=== PATIENT | male | born 1935 | race Caucasian/White ===

== ENCOUNTER → 2017-08-29 16:03 | Outpatient (CLI) | payer MEDICARE, SELFPAY ==
--- NOTE | 2017-08-29 16:13 | XR_ITS ---
XR foot wt bearing LT 3V HISTORY: Left foot pain ITS.REASON: pain ORDERING PHYSICIAN: Patt Valdes DPM PATIENT AGE: 82 years COMPARISON: None FINDINGS: There is moderate hallux valgus with first metatarsophalangeal angle of 29 degrees with mild osteoarthritic change of the first MTP joint and mild hypertrophic changes of the distal aspect of the first metatarsal. Flexion deformity involves the second, third, fourth, and fifth toes. No fracture or dislocation. No lytic or blastic change. 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 Hammertoe deformity
--- NOTE | 2017-08-29 16:13 | XR_ITS ---
XR foot wt bearing RT 3V HISTORY: Foot pain, status post recent surgery ITS.REASON: pain ORDERING PHYSICIAN: Patt Valdes DPM PATIENT AGE: 82 years COMPARISON: None FINDINGS: There is moderate hallux valgus with first metatarsophalangeal angle of 28 degrees with mild osteoarthritic change of the first metatarsophalangeal junction and hypertrophic changes of the distal aspect of the first metatarsal.. There is borderline pes planus. A 5 mm calcific density is present within the subcutaneous soft tissues overlying the dorsum of the midfoot. There is flexion of the second toe. No fracture or dislocation. No lytic or blastic change. No bony erosive process or radiopaque foreign body. IMPRESSION: 1. Hallux valgus with osteoarthritis of the first MTP joint and bunion formation. 2. Borderline pes planus 3. Left and deformity of the second toe
[2017-08-29 18:11] LABS: Basophils % 0.6 % (0.1-2.0); Eosinophils # 0.4 K/mm3 (0.0-0.4); Eosinophils % 5.9 % (0.1-12.0); Hematocrit 45.3 % (42.0-52.0); Hemoglobin 15.6 g/dL (14.1-18.0); Lymphocytes # 1.8 K/mm3 (0.7-4.5); Lymphocytes % 29.5 K/mm3 (10-50); Mean Corpuscular HGB Conc 34.4 g/dL (31.8-35.4); Mean Corpuscular Hemoglobin 31.4 pg (27.0-31.2); Mean Corpuscular Volume 91.1 fl (80-94); Mean Platelet Volume 9.8 fl (7.4-10.4); Monocytes # 0.4 K/mm3 (0.1-1.0); Monocytes % 6.7 % (1.7-9.3); Neutrophils # 3.6 K/mm3 (1.8-7.8); Neutrophils % 57.4 % (37.0-80.0); Platelet Count 138 K/mm3 (142-424); Red Blood Count 4.97 M/mm3 (4.60-6.20); Red Cell Distribution Width 13.3 % (11.5-17.5); White Blood Count 6.3 K/mm3 (4.8-10.8)
[2017-08-29 18:49] LABS: Alanine Aminotransferase 21 U/L (12-78); Albumin Level 3.6 gm/dL (3.4-5.0); Alkaline Phosphatase 84 U/L (46-116); Anion Gap 13.3 mEq/L (5-15); Aspartate Amino Transferase 25 U/L (15-37); Bilirubin,Total 0.8 mg/dL (0.2-1.0); Blood Urea Nitrogen 24 mg/dL (7-18); C-Reactive Protein 0.3 mg/L (0.0-0.9); Calcium 9.3 mg/dL (8.5-10.1); Carbon Dioxide 28 mmol/L (21.0-32.0); Chloride 104 mmol/L (98-107); Creatinine,Serum 0.69 mg/dL (0.70-1.30); Estimated Glomerular Filt Rate 110 ml/min (>60); GFR (African American) 133 ML/MIN (>60); Globulin 3.6 gm/dl (1.3-3.2); Glucose 112 mg/dL (74-106); Potassium 4.3 mmoL/L (3.5-5.1); Sodium 141 mmol/L (136-145); Total Protein,Serum 7.2 gm/dL (6.4-8.2)
[2017-08-29 18:56] LABS: Hemoglobin A1C 6.6 % (0.0-7.0)
[2017-08-29 19:32] LABS: Erythrocyte Sedimentation Rate 30 mm/hr (0-20)
== END ==
PROVIDERS: Visit Provider Podiatrist
DX: M79.673 Pain in unspecified foot (principal); E11.9 Type 2 diabetes mellitus without complications; Z51.89 Encounter for other specified aftercare
CPT/HCPCS: 36415; 73630; 80053; 83036; 85025; 85651; 86140; 87070; 87077; 87186; 87205

== ENCOUNTER → 2017-08-29 16:28 | Outpatient (CLI) | payer MEDICARE, SELFPAY | PROVIDERS: Visit Provider Podiatrist | DX: M79.673 Pain in unspecified foot (principal); E11.9 Type 2 diabetes mellitus without complications; Z51.89 Encounter for other specified aftercare | CPT/HCPCS: 36415; 73630; 80053; 83036; 85025; 85651; 86140; 87070; 87077; 87205 ==

== ENCOUNTER → 2022-06-24 11:11 | Outpatient (CLI) | payer MEDICARE, SELFPAY ==
--- NOTE | 2022-06-24 11:16 | CA_ITS ---
APPROVED REPORT EXAM: Comprehensive 2D, Doppler, and color-flow Echocardiogram Block Chopper Hand: JEREMY George, RVS Ht: 5 ft 9 in Wt: 178lbs BSA: 1.97 BP: 119/77 mmHg Indications: CP, SOA, MURMUR, CAd hx- coronary stent, [place], CKD, HTN, HLD Echo Enhancing Agent Comments: SHOE IRONER notified prior to stress 2D Dimensions LVDd 4.81 cm LVEF (Visual) 46.90 % LVDs 3.68 cm LA Volume 93.90 mL Aortic Root 3.48 cm LA Volume Index 46.70 mL/m2 (M/F) 16-34 Left Atrium 4.63 cm LVOT 1.94 cm (M/F) 1.5-2.5 M-Mode Dimensions RVDd 2.61 cm (0.9-2.6) LA Diam 5.41 cm (1.9-4.0) LVDd 4.94 cm (3.5-5.7) Ao Diam 3.58 cm (2.0-3.7) LVDs 3.33 cm (3.5-5.7) IVSd 1.57 cm (0.6-1.1) PWd 1.20 cm (0.6-1.1) EF (Teich) 60.80% EPSs 1.41 cm FS 32.60% EDV (Teich) 115.00 mL TAPSE 2.34 (<1.7) ESV (Teich) 45.10 mL LV Diastology E Decel Time 150.00 (160-240 msec) E/A Ratio 3.33 MED E' 4.00 (< 7 cm/sec) MED A' 4.80 cm/s E'/MED E' Ratio 41.00 (>14) LAT E' 5.00 (<10 cm/sec) LAT A' 3.10 cm/s E/LAT E' Ratio 32.80 (>14) Aortic Valve LVOT Max 65.00 (70-110 cm/s) LVOT VTI 16.40 cm AoV Peak Hung. 492.00 (50-130 cm/s) AI PHT 367.00 ms AO Peak GR. 97.00 mmHg AO Mean GR. 73.60 (<5 mmHg) AO VTI 134.12 (18-25 cm) CHRIS (VTI) 0.36 (2.5-4.5 cm2) Mitral Valve MV A Velocity 49.00 (40-130 cm/s) E/A Ratio 3.33 MV Decel. Time 150.00 (160-240 ms) MV PHT 47.00 ms Pulmonary Valve PV Peak Velocity 64.00 (50-150 cm/s) Tricuspid Valve TR P. Velocity 278.00 cm/s RAP Estimate 10.00 mmHg RVSP 40.90 mmHg Left Ventricle Left atrium is moderately enlarged, left ventricle is normal size mild concentric left ventricular hypertrophy, estimated ejection fraction 55% with no regional wall motion abnormality, grade 2 diastolic dysfunction seen with tissue Doppler evidence of raise left atrial pressure. Right Ventricle Right atrium and right ventricular mildly enlarged with normal contractility. Aortic Valve Aortic valve is thickened and calcified with severe restriction in the leaflet mobility, the maximum aortic outflow velocity: Still 4.7 m/s, resulting in a mean gradient of 74 mmHg across the aortic valve, valve area 0.4 cm??? represents critical aortic stenosis, there is mild aortic insufficiency. Mitral Valve Mitral valve has dense mitral annular calcification which extends in the posterior mitral leaflet, there is no mitral stenosis, there is mild mitral regurgitation. Tricuspid Valve Tricuspid valve grossly normal, there is mild tricuspid regurgitation, tricuspid regurgitation jet velocity is inadequate for accurate assessment of the right ventricular systolic pressure. Pulmonic Valve Pulmonic valve is poorly visualized. Great Vessels Aortic root is normal size. Inferior vena cava is mildly dilated without significant inspiratory collapse. Pericardium No significant pericardial effusion noted. Conclusion 1. Biatrial enlargement, normal left ventricular size, mild concentric left ventricular hypertrophy, estimated ejection fraction 55% with no regional wall motion abnormality, grade 2 diastolic dysfunction seen with tissue Doppler evidence of raise left atrial pressure. 2. Thickened and calcified aortic valve with critical aortic stenosis, valve area 0.4 cm???, there is mild aortic insufficiency. 3. Mild mitral and tricuspid regurgitation. 4. No significant pericardial effu
== END ==
PROVIDERS: PCP Family Medicine; Visit Provider Nurse Practitioner
DX: E78.5 Hyperlipidemia, unspecified (principal); I10 Essential (primary) hypertension; N18.9 Chronic kidney disease, unspecified; R01.1 Cardiac murmur, unspecified; R06.00 Dyspnea, unspecified; R07.9 Chest pain, unspecified; R94.31 Abnormal electrocardiogram [ECG] [EKG]; Z95.5 Presence of coronary angioplasty implant and graft; I20.8 Other forms of angina pectoris
CPT/HCPCS: 93306

== ENCOUNTER 2022-11-20 19:24 | Emergency (ER) | payer MEDICARE, MEDICAID, SELFPAY ==
--- NOTE | 2022-11-19 19:27 | ECG_ITS ---
APPROVED REPORT Exam: Resting ECG HR:76 bpm ECG Measurements Heart Rate 76 AXES DE 168 P 71 QRSd 103 QRS -41 QT 362 T 30 QTc 393 Conclusion SINUS RHYTHM WITH MARKED SINUS ARRHYTHMIA LEFT AXIS DEVIATION [QRS AXIS < -30] NONSPECIFIC T-WAVE ABNORMALITY ABNORMAL ECG UNCONFIRMED REPORT Electronically signed by : Dimitri Palumbo MD 11/21/2022 07:01:15
[2022-11-20] VITALS (9 sets, daily range): BP systolic 99–123; BP diastolic 42–70; PULSE 60–78; RESP 16–18; TEMP 36.6–36.8; O2SAT 95–98; BMI 23.4
--- NOTE | 2022-11-20 19:27 | XR_ITS ---
PROCEDURE INFORMATION: Exam: XR Chest Exam date and time: 11/20/2022 7:32 PM Age: 87 years old Clinical indication: Pain; Chest pressure; Additional info: Cp TECHNIQUE: Imaging protocol: Radiologic exam of the chest. Views: 1 view. Total images: 1 COMPARISON: No relevant prior studies available. FINDINGS: Tubes, catheters and devices: EKG leads are present. Lungs: Unremarkable. No consolidation. No pulmonary vascular congestion or edema. Pleural spaces: Unremarkable. No pleural effusion. No pneumothorax. Heart/Mediastinum: Unremarkable. No cardiomegaly. No mediastinal widening or hilar enlargement. Vasculature: Mildly atherosclerotic and tortuous thoracic aorta. Bones/joints: Near complete loss of subacromial space bilaterally implying chronic bilateral rotator cuff tears. Partially visualized moderate degenerative changes thoracic spine. Diffuse osseous demineralization. Soft tissues: Punctate metallic foreign bodies projecting at the lateral right lung apex. Skin fold artifact upper left hemithorax. IMPRESSION: 1. No radiographically acute cardiopulmonary process. 2. Chronic findings.
--- NOTE | 2022-11-20 19:32 | PC.NURSE ---
in room talking with patient at this time.
[2022-11-20 19:36] LABS: Basophils # 0.1 K/mm3 (0-0.2); Basophils % 0.9 % (0.1-2.0); Eosinophils # 0.3 K/mm3 (0.0-0.4); Eosinophils % 5.8 % (0.1-12.0); Hematocrit 46.2 % (42.0-52.0); Hemoglobin 15.1 g/dL (14.1-18.0); Lymphocytes # 1.4 K/mm3 (0.7-4.5); Lymphocytes % 23.5 % (10-50); Mean Corpuscular HGB Conc 32.6 g/dL (31.8-35.4); Mean Corpuscular Hemoglobin 31.2 pg (27.0-31.2); Mean Corpuscular Volume 95.8 fl (80-94); Monocytes # 0.5 K/mm3 (0.1-1.0); Neutrophils # 3.6 K/mm3 (1.8-7.8); Neutrophils % 61.8 % (37.0-80.0); Platelet Count 136 K/mm3 (142-424); Red Blood Count 4.82 M/mm3 (4.60-6.20); Red Cell Distribution Width 14.1 % (11.5-17.5); White Blood Count 5.9 K/mm3 (4.8-10.8)
--- NOTE | 2022-11-20 19:39 | CT_ITS ---
PROCEDURE INFORMATION: Exam: CTA Chest With Contrast Exam date and time: 11/20/2022 8:12 PM Age: 87 years old Clinical indication: Pain; Chest pressure; Additional info: Cehst pain to back, left sided numbness TECHNIQUE: Imaging protocol: Computed tomographic angiography of the chest with contrast. Exam focused on the arteries. 3D rendering (Not supervised by radiologist): MIP and/or 3D reconstructed images were created by the technologist. Total images: 760 Radiation optimization: All CT scans at this facility use at least one of these dose optimization techniques: automated exposure control; mA and/or kV adjustment per patient size (includes targeted exams where dose is matched to clinical indication); or iterative reconstruction. Contrast material: ISOVUE; Contrast volume: 100 ml; Contrast route: INTRAVENOUS (IV); REPORTING DATA: Count of CT and Cardiac NM exams in prior 12 months: This patient has received 0 known CTs and 0 known cardiac nuclear medicine studies in the 12 months prior to the current study. COMPARISON: CR XR CHEST PORTABLE 11/20/2022 7:32 PM FINDINGS: Pulmonary arteries: Adequate contrast opacification of the pulmonary arteries. Considerable respiratory motion artifact limits evaluation for pulmonary emboli. No main or proximal most segmental pulmonary emboli. Aorta: Moderately atherosclerotic thoracic aorta without aneurysm or dissection. Mild tortuosity. Thyroid: Tiny thyroid nodules or cysts requiring no follow-up. Lungs: Trachea and main bronchi are patent. Fine linear right upper lobe scarring. No concerning infiltrate or airspace consolidation. Small volume consolidation inferior right lower lobe, axial image 86. Scattered calcified pulmonary granuloma. Pleural spaces: Unremarkable. No pneumothorax. No pleural effusion. Heart: Normal heart size. No pericardial effusion. Status post stent graft repair of the aortic valve. Coronary arteries: Extensive coronary artery calcifications. Lymph nodes: No mediastinal or hilar lymphadenopathy. Partially calcified right hilar lymph node compatible with remote granulomatous disease. Bones/joints: Remote deformity right 5th rib. Diffuse osseous demineralization. Moderate degenerative changes thoracic spine. Increased thoracic kyphosis. [id number] anterior wedge compression deformity T5 vertebral body of undetermined acuity. No retropulsion or traumatic subluxation. Soft tissues: Mild bilateral gynecomastia. IMPRESSION: 1. No aortic aneurysm or dissection. 2. Extensive coronary artery calcifications. 3. No main or proximal segmental pulmonary emboli. 4. Very small airspace consolidation posterior right lung base. Consider follow-up routine chest CT in 3 months to confirm resolution. 5. Remote calcified granulomatous disease. 6. Status post stent repair of the aortic valve. 7. Bilateral gynecomastia 8. Josw-kr-vkrlsjbe compression deformity T5 vertebral body of undetermined acuity. COMMENTS: Consistent with the [employer]'s Incidental Findings Committee white paper (J Am Keisha Radiol 2015): In patients aged 35 years and older with an incidental thyroid nodule equal to or greater than 1.[address], MRI or extrathyroidal US, further evaluation with dedicated thyroid US is recommended for patients with normal life expectancy and without comorbidities. For smaller nodules without suspicious features, no further evaluation or follow up is recommended.
--- NOTE | 2022-11-20 19:45 | HMH.EDGENADL ---
Discharge Plan Disposition Patient Disposition: Home, Self-Care Chief Complaint: Chest Pain Prescriptions Prescriptions: No Action aspirin [Adult Low Dose Aspirin] 81 mg tablet,delayed release (DR/EC) 81 mg PO ONCE isosorbide mononitrate 60 mg tablet extended release 24 hr 60 mg PO DAILY 90 Days Qty: 90 metoprolol succinate 50 mg tablet extended release 24 hr 50 mg PO DAILY 90 Days Qty: 90 triamterene-hydrochlorothiazid 37.5-25 mg tablet 1 tab PO DAILY 90 Days Qty: 90 alfuzosin 10 mg tablet extended release 24 hr 10 mg PO DAILY Referrals Follow up/Referrals: Provider,Referral, MD [Referring] - See instructions Activity Restrictions/Add. Instructions Additional Instructions/Restrictions: Call your family doctor and cardiology to establish care for this visit to the emergency department and schedule follow-up within 48 hours to ensure improvement. If you have any worsening of your condition or any other concerning signs or symptoms, return to the emergency department or your primary care doctor for further evaluation. Take Tylenol 1000 mg every 6 hours (4 times daily) and ibuprofen 400 mg every 6 hours (4 times daily) as needed with food and water to prevent GI upset and kidney damage. Clinical Impressions Clinical Impression: Chest pain, Constipation, Abdominal pain Discharge ED Provider: Coleman Jeronimo General Adult HPI General Chief complaint: Chest Pain Stated complaint: Chest Pain Time Seen by Provider: 11/20/22 19:27 Mode of Arrival: Ambulatory Source of Information: Patient Limitations: No Limitations Description of Symptoms (Recalled from ER Triage Doc. by RN): pt c/o lt side chest pain radiating down lt arm and to back since 6am this morning History of Present Illness HPI narrative: This is an 87-year-old male with history of hypertension, hyperlipidemia, severe aortic stenosis status post porcine aortic valve replacement in August 2022, CAD status post stenting in June 2022 currently on aspirin and Plavix presenting with chest pain. Patient states that he has been having chest pain for about 2 weeks. He has seen his primary care doctor, who told him it may be shingles given redness and pain on the left side of his chest. Patient states the pain has not gotten any better. It is moderate to severe in intensity, intermittent, left-sided, radiates from left side of his chest to his back. States that he is also having left face, left upper extremity and left lower extremity tingling. Denies any weakness, shortness of breath, diaphoresis, nausea or vomiting. Also having abdominal pain that is constant, Also radiates to his back. Denies bowel or bladder dysfunction, constipation, diarrhea, dysuria or hematuria, fevers or chills,, or any other concerns. Related Data Home Medications Medication Instructions Recorded Confirmed aspirin 81 mg tablet,delayed 81 mg PO ONCE 08/29/17 06/24/22 release (Adult Low Dose Aspirin) alfuzosin 10 mg tablet,extended 10 mg PO DAILY 06/09/22 06/24/22 release 24 hr isosorbide mononitrate 60 mg 60 mg PO DAILY 90 days #90 tabs 06/09/22 06/24/22 tablet,extended release 24 hr metoprolol succinate 50 mg 50 mg PO DAILY 90 days #90 tabs 06/09/22 06/24/22 tablet,extended release 24 hr triamterene 37.5 1 tab PO DAILY 90 days #90 tabs 06/09/22 06/24/22 mg-hydrochlorothiazide 25 mg tablet Allergies Allergy/AdvReac Type Severity Reaction Status Date / Time Latex, Natural Rubber Allergy Verified 06/24/22 12:44 [facility] Disclaimer: The information contained in this section may have been updated after the patient was seen, as this information can be updated by other users. Medical History (Updated 11/20/22 @ 21:07 by Coleman Jeronimo MD) Abnormal electrocardiogram [ECG] [EKG] Aortic stenosis CAD (coronary artery disease) Cardiac murmur Chest pain Chest pain CKD (chronic kidney disease) Dyspnea HLD (hyperlipidemia) HTN (hypertension
--- NOTE | 2022-11-20 19:47 | CT_ITS ---
PROCEDURE INFORMATION: Exam: CTA Abdomen and Pelvis With Contrast Exam date and time: 11/20/2022 8:12 PM Age: 87 years old Clinical indication: Abdominal pain; Other: Back; Additional info: Cp and abd pain to back - R/O dissection TECHNIQUE: Imaging protocol: Computed tomographic angiography of the abdomen and pelvis with contrast. Exam focused on the arteries. 3D rendering (Not supervised by radiologist): MIP and/or 3D reconstructed images were created by the technologist. Total images: 1259 Radiation optimization: All CT scans at this facility use at least one of these dose optimization techniques: automated exposure control; mA and/or kV adjustment per patient size (includes targeted exams where dose is matched to clinical indication); or iterative reconstruction. Contrast material: ISOVUE; Contrast volume: 100 ml; Contrast route: INTRAVENOUS (IV); REPORTING DATA: Count of CT and Cardiac NM exams in prior 12 months: This patient has received 0 known CTs and 0 known cardiac nuclear medicine studies in the 12 months prior to the current study. COMPARISON: CR XR CHEST PORTABLE 11/20/2022 7:32 PM FINDINGS: Aorta: Abdominal aorta is moderately atherosclerotic without aneurysm or dissection. Celiac trunk and mesenteric arteries: Moderate atherosclerotic irregularity and narrowing of the proximal superior mesenteric artery. Mild narrowing origin of the celiac artery. Renal arteries: Moderate stenosis origin of the renal arteries. Right iliac arteries: Atherosclerotic right iliac artery without occlusion or stenosis. Left iliac arteries: Atherosclerotic left iliac artery without occlusion or stenosis. Liver: No mass. Gallbladder and bile ducts: Status post cholecystectomy. No bile duct dilatation. Pancreas: Atrophic pancreas. No acute pancreatitis. Spleen: Heterogeneous spleen compatible with phase of contrast. No splenomegaly. Adrenal glands: Unremarkable. No mass. Kidneys and ureters: No hydronephrosis, nephrolithiasis, or renal mass. Bilateral renal cortical thinning/scarring. Small left renal cortical cyst. Stomach and bowel: Unremarkable stomach and duodenum. No ileus or bowel obstruction. Small bowel appears within normal limits. Mobile cecum projecting in the right upper quadrant. Moderate to large colonic stool burden. Severe sigmoid diverticulosis without acute diverticulitis. Unremarkable rectum. Appendix: The appendix is not discretely visualized. No secondary signs of appendicitis. Intraperitoneal space: Unremarkable. No free air. No significant fluid collection. Lymph nodes: Unremarkable. No enlarged lymph nodes. Urinary bladder: Mild bladder wall thickening from incomplete distention. Reproductive: Mild prostatomegaly. Bones/joints: Mild degenerative changes bilateral hips and SI joints. Minor lumbar levocurvature. Moderate degenerative changes lumbar spine. No acute osseous abnormality. Soft tissues: Unremarkable. IMPRESSION: 1. No abdominal aortic aneurysm or dissection. 2. No acute intra-abdominal or pelvic process. 3. Sequela of chronic constipation with large formed stool burden. 4. Multiple additional chronic and incidental findings.
[2022-11-20 19:49] LABS: Chloride 100 mmol/L (98-107); Potassium 4.6 mmoL/L (3.5-5.1); Sodium 141 mmol/L (136-145)
[2022-11-20 19:51] LABS: Blood Urea Nitrogen 35 mg/dl (9-20); Creatinine Clearance Estimated 50 mL/min (50-200); Estimated Glomerular Filt Rate 64 ml/min (>60); GFR (African American) 77 ML/MIN (>60)
[2022-11-20 19:52] LABS: Alanine Aminotransferase 39 U/L (12-78); Albumin Level 3.8 g/dl (3.5-5.0); Alkaline Phosphatase 169 U/L (38-126); Anion Gap 13.6 mEq/L (5-15); Aspartate Amino Transferase 56 U/L (17-59); Bilirubin,Total 1.2 mg/dl (0.2-1.3); Calcium 9.5 mg/dl (8.4-10.2); Carbon Dioxide 32 mmol/L (22.0-30.0); Globulin 3.8 g/dL (1.3-3.2); Glucose 135 mg/dl (74-100); Total Protein,Serum 7.6 g/dl (6.3-8.2)
[2022-11-20 19:56] LABS: Lipase 71 U/L (23-300)
[2022-11-20 20:07] LABS: Troponin I 0.01 ng/ml (0.00-0.034)
--- NOTE | 2022-11-20 20:11 | PC.NURSE ---
pt at ct
--- NOTE | 2022-11-20 20:57 | PC.NURSE ---
pt received a warm blanket
[2022-11-20 22:49] LABS: Troponin I < 0.01 ng/ml (0.00-0.034)
== END 2022-11-20 23:10 | disposition home or self-care (01) ==
PROVIDERS: Emergency Provider Emergency Medicine; PCP Family Medicine
DX: R07.9 Chest pain, unspecified (principal); M79.601 Pain in right arm; E78.5 Hyperlipidemia, unspecified; Z79.02 Long term (current) use of antithrombotics/antiplatelets; Z79.82 Long term (current) use of aspirin; I12.9 Hypertensive chronic kidney disease with stage 1 through stage 4 chronic kidney disease, or unspecified chronic kidney disease; N18.9 Chronic kidney disease, unspecified; I25.10 Atherosclerotic heart disease of native coronary artery without angina pectoris
CPT/HCPCS: 36415; 71045; 71275; 74174; 80053; 83690; 84484; 85025; 93005; 96360; 99285; Q9967

== ENCOUNTER 2023-06-14 09:25 | Day surgery (SDC) | payer MEDICARE, MEDICAID, SELFPAY ==
[2023-06-10 09:55] VITALS: BMI 22.1
[2023-06-14] VITALS (9 sets, daily range): BP systolic 109–128; BP diastolic 55–71; PULSE 49–58; RESP 17–18; TEMP 36–36.2; O2SAT 92–100
[2023-06-14] MEDS: PHENYLEPHRINE 2.5% OPHTH SOLN 2ML 0.0500000000000000028 ML OP ×3 (10:15→10:25)
[2023-06-14] MEDS: TETRACAINE 0.5% OPTH SOL 15ML OP ×3 (10:15→10:25)
[2023-06-14] MEDS: CYCLOPENTOLATE 2% OPHTH SOLN 2ML BOTTLE OP ×3 (10:15→10:25)
[2023-06-14] MEDS: MIDAZOLAM 2MG/2ML VIAL 1 MG IV (12:02)
[2023-06-14] MEDS: LIDOCAINE 1% PF 2ML AMPULE 2 ML IJ (12:03)
[2023-06-14] MEDS: TIMOLOL 0.5% OPTH SOLN 5ML OP (12:03)
[2023-06-14] MEDS: TOBRAMYCIN/DEX OPTH SUSP 2.5ML OP (12:03)
== END 2023-06-14 12:40 | disposition home or self-care (01) ==
PROVIDERS: PCP Family Medicine; Visit Provider Ophthalmology
PROC: (CPT 66984; principal; 2023-06-14 12:00)
DX: H25.811 Combined forms of age-related cataract, right eye (principal)
CPT/HCPCS: 66984; V2632

== ENCOUNTER 2023-08-09 10:55 | Emergency (ER) | payer MEDICARE, MEDICAID, SELFPAY ==
[2023-08-09] VITALS (9 sets, daily range): BP systolic 93–134; BP diastolic 50–74; PULSE 65–87; RESP 18–21; TEMP 36.6; O2SAT 73–100; BMI 22.1
--- NOTE | 2023-08-09 10:55 | ECG_ITS ---
APPROVED REPORT Exam: Resting ECG HR:77 bpm ECG Measurements Heart Rate 77 AXES UT 179 P 76 QRSd 102 QRS -53 QT 386 T 14 QTc 418 Conclusion SINUS RHYTHM WITH OCCASIONAL SUPRAVENTRICULAR PREMATURE COMPLEXES PATTERN CONSISTENT WITH PULMONARY DISEASE LEFT ANTERIOR FASCICULAR BLOCK [QRS AXIS <= -45, QR IN I, RS IN II] SEPTAL MYOCARDIAL INFARCTION , PROBABLY OLD [40+ ms Q WAVE IN V1/V2] Electronically signed by : JARON IRENE, 08/11/2023 19:33:00
[2023-08-09 11:04] LABS: Coronavirus 19, PCR Not Detected (NotDetected); Influenza A, PCR Not Detected (NotDetected); Influenza B, PCR Not Detected (NotDetected)
--- NOTE | 2023-08-09 11:04 | XR_ITS ---
FINAL REPORT CLINICAL HISTORY: chest pain, cough COMPARISON: 11/20/2022 FINDINGS: The heart size is normal. There is an unfolded aorta. The mediastinum is normal. There is no focal infiltrate or edema. There are no pleural effusions. There is no pneumothorax. There is no osseous abnormality. There are metallic densities in the upper right thorax. IMPRESSION: No acute cardiopulmonary process Reviewed, Interpreted and Dictated by Arden Cardona MD Transcribed by Nimisha Hawley Authenticated and . [facility]
--- NOTE | 2023-08-09 11:07 | HMH.EDGENADL ---
Discharge Plan Disposition Patient Disposition: Home, Self-Care Condition: Good Prescriptions Prescriptions: No Action aspirin [Adult Low Dose Aspirin] 81 mg tablet,delayed release (DR/EC) 81 mg PO ONCE isosorbide mononitrate 60 mg tablet extended release 24 hr 60 mg PO DAILY 90 Days Qty: 90 metoprolol succinate 50 mg tablet extended release 24 hr 50 mg PO DAILY 90 Days Qty: 90 triamterene-hydrochlorothiazid 37.5-25 mg tablet 1 tab PO DAILY 90 Days Qty: 90 alfuzosin 10 mg tablet extended release 24 hr 10 mg PO DAILY Referrals Follow up/Referrals: Provider,Referral, MD [Referring] - See instructions Activity Restrictions/Add. Instructions Additional Instructions/Restrictions: Please follow-up with your primary care provider. Please make sure you stay hydrated and continue to check your blood pressure. You may want to discuss with your normal doctor's adjusting your diuretic dose or blood pressure medications if, after time, it seems that these are contributing to some of your symptoms. Please return with any new or worsening symptoms. Clinical Impressions Clinical Impression: Diarrhea Instructions Patient Instructions: DI for Atypical Chest Pain Discharge ED Provider: Paul Cobos Adult HPI General Chief complaint: Chest Pain Stated complaint: CHEST PAIN Time Seen by Provider: 08/09/23 11:04 Mode of Arrival: Ambulatory Source of Information: Patient Limitations: No Limitations Description of Symptoms (Recalled from ER Triage Doc. by RN): Patient complaint of head, bilateral arm pain, chills, diarrhea, nausea and off and on chest pains. States this started this morning. History of Present Illness HPI narrative: This patient presents for evaluation of nausea, vomiting, diarrhea. Symptoms were gradual in onset starting yesterday, worsening this morning. He reports 1-2 episodes of emesis, both emesis and diarrhea are nonbloody. No changes in medications or new medications. Denies recent antibiotic use. Does describe some associated mild substernal nonradiating nonpleuritic nonexertional nonpositional nonreproducible substernal chest pain. Denies any abdominal pain outside of some discomfort when he was throwing up. He denies any abdominal pain at this time. He denies any shortness of breath, upper respiratory symptoms. No sick contacts. No fevers or chills. Please note that above description of symptoms, in this electronic medical record under categorization of recalled from ER triage doctor by RN are reflective of an initial nursing assessment, however, is not reflective of my full history and physical exam that was personally taken and clarified. Consequentially, this preceding description of symptoms, which may include the patient's categorized chief complaint in the EMR, do not reflect my personal clinical impression, and the ultimate description of history of present illness and patient stated complaints should be deferred to this section of the note. Unless stated otherwise or congruent with this section of the note, additional signs, symptoms, or incongruence should be interpreted as inaccurate with my clinical impression. Related Data Home Medications Medication Instructions Recorded Confirmed aspirin 81 mg tablet,delayed 81 mg PO ONCE 08/29/17 06/14/23 release (Adult Low Dose Aspirin) alfuzosin 10 mg tablet,extended 10 mg PO DAILY 06/09/22 06/14/23 release 24 hr isosorbide mononitrate 60 mg 60 mg PO DAILY 90 days #90 tabs 06/09/22 06/14/23 tablet,extended release 24 hr metoprolol succinate 50 mg 50 mg PO DAILY 90 days #90 tabs 06/09/22 06/14/23 tablet,extended release 24 hr triamterene 37.5 1 tab PO DAILY 90 days #90 tabs 06/09/22 06/14/23 mg-hydrochlorothiazide 25 mg tablet Allergies Allergy/AdvReac Type Severity Reaction Status Date / Time Latex, Natural Rubber Allergy Verified 06/14/23 10:20 [facility] Disclaimer: The information contained in this section may have been updated after the patient was seen, as this information can be updated by other users. Medical History (Updated 08/09/23 @ 15:24 by Paul Cobos MD) Aortic stenosis Abnormal electrocardiogram [ECG] [EKG] Cardiac murmur CKD (chronic kidney disease) HLD (hyperlipidemia) HTN (hypertension) Dyspnea Chest pain CAD (coronary artery disease) Chest pain Surgical History History of heart artery stent History of cardiac cath Family History Other No significant family history Social History Smoking Status: Never smoker alcohol intake: never current occupational status: retired Travel in the last 8 weeks: None ROS Obtained: Yes other As per HPI Physical Exam General General appearance: alert and in no apparent distress Head Head exam: atraumatic and normocephalic Eye Eye exam: Present normal appearance Neck Neck exam: Present normal inspection Chest Chest inspection: Present normal inspection and symmetric chest wall rise Respiratory Respiratory exam: Present normal lung sounds bilaterally; Absent respiratory distress Cardiovascular Cardiovascular exam: Present regular rate and normal rhythm Abdominal Exam Abdominal exam: Present soft Neurological Exam Neurological exam: Present alert and oriented X3 Psychiatric Psychiatric exam: Present normal affect and normal mood Skin Skin exam: Present warm and dry Other Other exam information: No abdominal tenderness to palpation, no appreciable hernia bulge at this time. Medical Decision Making Medical Records Medical records reviewed: Yes I reviewed the patient's medical records. Kapil Inquiry Pt receiving controlled substance: No Vital Signs: 08/09/23 10:58 08/09/23 11:30 08/09/23 12:15 Temperature 97.9 F Temperature Source Oral Pulse Rate 74 74 Pulse Rate [Radial] 87 Respiratory Rate 20 21 19 Blood Pressure 111/62 112/64 Blood Pressure [Right Arm] 134/74 Blood Pressure Mean [Right Arm] 94 Blood Pressure Source Blood Pressure Source [Right Arm] Automatic Cuff Blood Pressure Position Blood Pressure Position [Right Arm] Sitting 02 Sat by Pulse Oximetry 98 95 98 Oxygen Delivery Method Room Air Room Air 08/09/23 12:30 08/09/23 13:00 08/09/23 13:30 Temperature Temperature Source Pulse Rate 70 65 Pulse Rate [Radial] Respiratory Rate 21 20 21 Blood Pressure 114/66 115/59 L 105/57 L Blood Pressure [Right Arm] Blood Pressure Mean [Right Arm] Blood Pressure Source Blood Pressure Source [Right Arm] Blood Pressure Position Blood Pressure Position [Right Arm] 02 Sat by Pulse Oximetry 98 73 L 94 L Oxygen Delivery Method Room Air 08/09/23 14:00 08/09/23 14:30 08/09/23 15:34 Temperature 98 F Temperature Source Oral Pulse Rate 73 69 69 Pulse Rate [Radial] Respiratory Rate 18 19 19 Blood Pressure 93/50 L 105/54 L 105/54 L Blood Pressure [Right Arm] Blood Pressure Mean [Right Arm] Blood Pressure Source Automatic Cuff Blood Pressure Source [Right Arm] Blood Pressure Position Sitting Blood Pressure Position [Right Arm] 02 Sat by Pulse Oximetry 100 99 Oxygen Delivery Method Room Air Room Air Lab Data Lab Results 08/09/23 11:00: WBC 4.8, RBC 4.89, Hgb 16.5, Hct 49.9, MCV 102.0 H, MCH 33.7 H, MCHC 33.0, RDW 14.0, Plt Count 89 L, MPV 9.9, Neut % (Auto) 83.4 H, Lymph % (Auto) 8.3 L, [place] % (Auto) 6.0, Eos % (Auto) 1.9, Baso % (Auto) 0.4, Neut # (Auto) 4.0, Lymph # (Auto) 0.4 L, [place] # (Auto) 0.3, Eos # (Auto) 0.1, Baso # (Auto) 0.0, Total Counted 100, Neutrophils % (Manual) 87 H, Lymphocytes % (Manual) 10, Monocytes % (Manual) 2, Eosinophils % (Manual) 1, Nucleated RBCs 1, Platelet Estimate Moderate decrease, Macrocytosis 1+, Sodium 142, Potassium 4.2, Chloride 106, Carbon Dioxide 34 H, Anion Gap 6.2, BUN 26 H, Creatinine 0.80, Estimated Creat Clear 51, Estimated GFR 92, Est GFR ( Amer) 111, Glucose 163 H, Calcium 9.2, Total Bilirubin 2.7 H, AST 52, ALT 37, Alkaline Phosphatase 81, Troponin I < 0.01, Total Protein 6.9, Albumin 3.7, Globulin 3.2, Albumin/Globulin Ratio 1.2 08/09/23 11:01: SARS-CoV-2 (PCR) Not detected, Influenza A Untype (PCR) Not detected, Influenza Type B (PCR) Not detected 08/09/23 13:48: Troponin I < 0.01 08/09/23 11:00 08/09/23 11:00 Orders (Tests/Meds): ED MEDICATIONS Discontinued Medications Generic Name Dose Route Start Last Admin Trade Name Freq PRN Reason Stop Dose Admin Sodium Chloride 10 ml 08/09/23 11:04 Sodium Chloride 0.9% 10ml Flush Syringe IV 09/08/23 11:03 NEEDED PRN Maintain IV Site ORDERS Category Date Time Status Chest XR -- portable [XR chest portable] Stat Exams 08/09/23 11:04 Taken Complete Blood Count Man Dif Stat Lab 08/09/23 11:00 Completed Comprehensive Metabolic Panel Stat Lab 08/09/23 11:00 Completed Rapid PCR Covid and Flu A/B Stat Lab 08/09/23 11:01 Completed Troponin I Q3H Lab 08/09/23 13:48 Completed Troponin I Stat Lab 08/09/23 11:00 Completed Medical Decision Narrative: Patient with history and exam per above presenting for evaluation of multiple complaints, nausea, vomiting, diarrhea, malaise Diagnoses considered include infectious diarrhea, ACS, GIBSON, electrolyte abnormality, hypoglycemia, among others. Given lack of abdominal pain, hemodynamic instability, palpable hernia, or other findings suggestive of acute surgical pathology there is insufficient evidence to warrant further workup at this time for bowel obstruction, incarcerated hernia, or other etiology that would necessitate CT imaging ED workup and treatment included: ED MEDICATIONS Discontinued Medications Generic Name Dose Route Start Last Admin Trade Name Freq PRN Reason Stop Dose Admin Sodium Chloride 10 ml 08/09/23 11:04 Sodium Chloride 0.9% 10ml Flush Syringe IV 09/08/23 11:03 NEEDED PRN Maintain IV Site ORDERS Category Date Time Status Chest XR -- portable [XR chest portable] Stat Exams 08/09/23 11:04 Taken Complete Blood Count Man Dif Stat Lab 08/09/23 11:00 Completed Comprehensive Metabolic Panel Stat Lab 08/09/23 11:00 Completed Rapid PCR Covid and Flu A/B Stat Lab 08/09/23 11:01 Completed Troponin I Q3H Lab 08/09/23 13:48 Completed Troponin I Stat Lab 08/09/23 11:00 Completed Labs were independently interpreted by me, significant for no leukocytosis, creatinine within normal limits, platelet count 89 in the absence of any evidence of acute bleeding, troponins within normal limits Imaging was independently visualized and interpreted by me, significant for no consolidative process or widened mediastinum My clinical impression at this time is most consistent with hypovolemia, unspecified diarrheal illness Upon repeat evaluation patient reported improvement of symptoms. He was able to ambulate without difficulty which, per daughter at bedside, was the main symptom that warranted presentation today. She reports that he was able to get some sleep while in the emergency department and states that he has been in similar condition in the past when he has not had much sleep. Additionally he was able to initiate some p.o. intake which helped his symptoms as well. Daughter expresses level of comfort with his clinical picture at this time, he will follow-up closely with line tender [place] and primary care physician. I discussed my clinical impression with patient and answered all questions. At this time, the evidence for any other entities in the differential is insufficient to warrant any further testing or ED observation. This was explained to the patient. The patient was advised that persistent or worsening symptoms require further evaluation. I confirmed the patient's understanding of this discussion. Critical Care Critical Care Time Critical Care Time: No
[2023-08-09 11:08] LABS: MANUAL DIFFERENTIAL MANUAL DIFFERENTIAL (MANUAL DIFF)
[2023-08-09 11:12] LABS: Chloride 106 mmol/L (98-107); Potassium 4.2 mmoL/L (3.5-5.1); Sodium 142 mmol/L (136-145)
[2023-08-09 11:13] LABS: Basophils % 0.4 % (0.1-2.0); Eosinophils # 0.1 K/mm3 (0.0-0.4); Eosinophils % 1.9 % (0.1-12.0); Hematocrit 49.9 % (42.0-52.0); Hemoglobin 16.5 g/dL (14.1-18.0); Lymphocytes # 0.4 K/mm3 (0.7-4.5); Lymphocytes % 8.3 % (10-50); Mean Corpuscular Hemoglobin 33.7 pg (27.0-31.2); Mean Platelet Volume 9.9 fl (7.4-10.4); Monocytes # 0.3 K/mm3 (0.1-1.0); Neutrophils % 83.4 % (37.0-80.0); Platelet Count 89 K/mm3 (142-424); Red Blood Count 4.89 M/mm3 (4.60-6.20); White Blood Count 4.8 K/mm3 (4.8-10.8)
[2023-08-09 11:15] LABS: Alanine Aminotransferase 37 U/L (12-78); Albumin Level 3.7 g/dl (3.5-5.0); Albumin/Globulin Ratio 1.2 (1.1-1.8); Alkaline Phosphatase 81 U/L (38-126); Anion Gap 6.2 mEq/L (5-15); Aspartate Amino Transferase 52 U/L (17-59); Bilirubin,Total 2.7 mg/dl (0.2-1.3); Blood Urea Nitrogen 26 mg/dl (9-20); Carbon Dioxide 34 mmol/L (22.0-30.0); Creatinine Clearance Estimated 51 mL/min (50-200); Estimated Glomerular Filt Rate 92 ml/min (>60); GFR (African American) 111 ML/MIN (>60); Globulin 3.2 g/dL (1.3-3.2); Total Protein,Serum 6.9 g/dl (6.3-8.2)
[2023-08-09 11:16] LABS: Calcium 9.2 mg/dl (8.4-10.2); Glucose 163 mg/dl (74-100)
--- NOTE | 2023-08-09 11:21 | PC.NURSE ---
DR DERAS AT BS FOR PT EVAL
--- NOTE | 2023-08-09 11:35 | PC.NURSE ---
PT WAS GIVEN A WATER
[2023-08-09 11:37] LABS: Troponin I < 0.01 ng/ml (0.00-0.034)
--- NOTE | 2023-08-09 11:44 | PC.NURSE ---
PT WAS GIVEN A URINAL AT THIS TIME
--- NOTE | 2023-08-09 12:32 | PC.NURSE ---
SECOND TROP DRAWN AND SENT TO LAB
--- NOTE | 2023-08-09 12:37 | PC.NURSE ---
ROUNDED ON PT. NO NEEDS VOICED AT THIS TIME. CALL LIGHT WITHIN REACH
--- NOTE | 2023-08-09 13:51 | PC.NURSE ---
SECOND TROP DRAWN AND SENT TO LAB
[2023-08-09 14:48] LABS: Troponin I < 0.01 ng/ml (0.00-0.034)
[2023-08-09 14:49] LABS: Eosinophils % 1 % (0-3); Lymphocytes % 10 % (10-50); Monocytes % 2 % (2-9); Neutrophils % 87 % (42-76); Nucleated Red Blood Cells 1; Total Cells Counted 100
[2023-08-09 14:50] LABS: Macrocytosis 1+; Platelet Estimate Moderate Decrease
== END 2023-08-09 15:34 | disposition home or self-care (01) ==
PROVIDERS: Emergency Provider Emergency Medicine; PCP Family Medicine
DX: R07.89 Other chest pain (principal); R11.2 Nausea with vomiting, unspecified; R19.7 Diarrhea, unspecified; R94.31 Abnormal electrocardiogram [ECG] [EKG]
CPT/HCPCS: 71045; 80053; 84484; 85007; 85014; 85018; 85048; 85049; 87636; 93005; 99284

== ENCOUNTER 2023-08-29 16:14 | Emergency (ER) | payer MEDICARE, MEDICAID, SELFPAY ==
[2023-08-29 16:25] VITALS: BP 97/55; PULSE 60; RESP 18; TEMP 36.6; O2SAT 99; BMI 22.6
--- NOTE | 2023-08-29 16:30 | XR_ITS ---
PROCEDURE INFORMATION: Exam: XR Right Knee Exam date and time: 08/29/2023 4:36 PM Age: 88 years old Clinical indication: Pain; Knee; Right; Additional info: Pain and swelling TECHNIQUE: Imaging protocol: Radiologic exam of the right knee. Views: 3 views. COMPARISON: CR [id number] XR foot wt bearing RT 3V 08/29/2017 4:12 PM FINDINGS: Bones/joints: There is a moderate joint effusion. There is diffuse osseous demineralization. There is tricompartmental osteoarthritis of the knee with loss of joint space, subchondral sclerosis, and productive changes. The osseous structures are intact, with no signs of acute fracture, dislocation, or malalignment. There is no evidence of abnormal bone density or destructive lesions. Soft tissues: The soft tissues appear within normal limits. Vasculature: Scattered atherosclerotic disease of the arterial vasculature. IMPRESSION: 1. There is a moderate joint effusion. 2. At the time of imaging, the study shows no acute osseous abnormalities but does reveal signs of tricompartmental osteoarthritis.
--- NOTE | 2023-08-29 16:58 | EXP.UTC ---
Discharge Plan Disposition Patient Disposition: Home, Self-Care Condition: Good Prescriptions Prescriptions: New methylprednisolone 4 mg Tablets,Dose Pack 4 mg PO DIRECTED 6 Days Qty: 21 0RF Rx Instructions: Take 1 pack as directed for 6 days No Action aspirin [Adult Low Dose Aspirin] 81 mg tablet,delayed release (DR/EC) 81 mg PO ONCE isosorbide mononitrate 60 mg tablet extended release 24 hr 60 mg PO DAILY 90 Days Qty: 90 metoprolol succinate 50 mg tablet extended release 24 hr 50 mg PO DAILY 90 Days Qty: 90 triamterene-hydrochlorothiazid 37.5-25 mg tablet 1 tab PO DAILY 90 Days Qty: 90 alfuzosin 10 mg tablet extended release 24 hr 10 mg PO DAILY atorvastatin 40 mg tablet 40 mg PO DAILY torsemide 20 mg tablet 20 mg PO DAILY dapagliflozin propanediol [Farxiga] 10 mg tablet 10 mg PO DAILY Referrals Follow up/Referrals: Royce Faustin DO [Staff Physician] - See instructions Willian Green [Primary Care Provider] - See instructions Activity Restrictions/Add. Instructions Additional Instructions/Restrictions: Rest the extremity, Wear the do wrap for compression, Elevate the extremity as tolerated while you are resting. Take the medication as directed. Follow up with Dr. Faustin (orthopedics). I put in a referral but you need to call his office and schedule an appointment. Follow up with your regular doctor. GO TO THE ER FOR ANY WORSENING SYMPTOMS Clinical Impressions Clinical Impression: Right knee pain, Effusion, right knee, Osteoarthritis of right knee Instructions Patient Instructions: DI for Osteoarthritis, DI for Knee Pain, How to Apply an Elastic Wrap on Knee Discharge ED Provider: Kosta Lobo [facility] General Stated complaint: right knee pain/swelling, no accident Mode of Arrival: Ambulatory Source of Information: Patient Limitations: No Limitations Time Seen by Provider: 08/29/23 16:58 Description of Symptoms (Recalled from Triage Doc. by RN): Pt's symptoms are swillen right knee pain. HEENT Symptoms (Recalled from RN notes): No Resp Symptoms (Recalled from RN notes): No Skin Symptoms (Recalled from RN notes): No MS Symptoms (Recalled from RN notes): Yes Functional Status (Recalled from RN notes): n/a History of Present Illness Provider Complaint: He states that for the past several months he has had bilateral knee pain. At times his knees have been swollen too. He denies any injury, but states he has a history of osteoarthritis in both his knees. He denies any other pain or complaints. Related Data Home Medications Medication Instructions Recorded Confirmed aspirin 81 mg tablet,delayed 81 mg PO ONCE 08/29/17 08/29/23 release (Adult Low Dose Aspirin) alfuzosin 10 mg tablet,extended 10 mg PO DAILY 06/09/22 06/14/23 release 24 hr isosorbide mononitrate 60 mg 60 mg PO DAILY 90 days #90 tabs 06/09/22 08/29/23 tablet,extended release 24 hr metoprolol succinate 50 mg 50 mg PO DAILY 90 days #90 tabs 06/09/22 08/29/23 tablet,extended release 24 hr triamterene 37.5 1 tab PO DAILY 90 days #90 tabs 06/09/22 08/29/23 mg-hydrochlorothiazide 25 mg tablet atorvastatin 40 mg tablet 40 mg PO DAILY 08/29/23 08/29/23 dapagliflozin propanediol 10 mg 10 mg PO DAILY 08/29/23 08/29/23 tablet (Farxiga) torsemide 20 mg tablet 20 mg PO DAILY 08/29/23 08/29/23 Previous Rx's Medication Instructions Recorded methylprednisolone 4 mg tablets in 4 mg PO DIRECTED 6 days #21 tabs 08/29/23 a dose pack Allergies Allergy/AdvReac Type Severity Reaction Status Date / Time Latex, Natural Rubber Allergy Verified 08/29/23 16:41 Worker's Comp Is this a Worker's Comp case?: No [facility] Disclaimer: The information contained in this section may have been updated after the patient was seen, as this information can be updated by other users. Medical History (Updated 08/29/23 @ 17:23 by Kosta Lobo APRN) Aortic stenosis Abnormal electrocardiogram [ECG] [EKG] Cardiac murmur CKD (chronic kidney disease) HLD (hyperlipidemia) HTN (hypertension) Dyspnea Chest pain CAD (coronary artery disease) Chest pain Surgical History History of heart artery stent History of cardiac cath Family History Other No significant family history Social History Smoking Status: Never smoker alcohol intake: never current occupational status: retired Travel in the last 8 weeks: None ROS Obtained: Yes All systems reviewed & no additional complaints except as documented Constitutional Constitutional: Denies chills and Denies fever(s) Eyes Eyes: Denies eye discharge ENT Ears, Nose, Mouth, and Throat: Denies dizziness, Denies otalgia and Denies sore throat Cardiovascular Cardiovascular: Denies chest pain Respiratory Respiratory: Denies shortness of breath, Denies chest congestion, Denies cough, Denies stridor and Denies wheezing Gastrointestinal Gastrointestingal: Denies nausea or vomiting Musculoskeletal Musculoskeletal: Reports as per HPI Integumentary/Breasts Skin/Breast: Denies rash Neurologic Neurologic: Denies dizziness and Denies paresthesias Allergic/Immunologic Allergic/Immunologic: Denies wheezing Physical Exam General General appearance: alert and in no apparent distress Head Head exam: atraumatic, normocephalic and normal inspection Eye Eye exam: Present normal appearance, PERRL and EOMI ENT ENT exam: Present normal exam, normal oropharynx, mucous membranes moist, TM's normal bilaterally and normal external ear exam Neck Neck exam: Present normal inspection, full ROM and trachea midline; Absent meningismus or lymphadenopathy Chest Chest inspection: Present normal inspection and symmetric chest wall rise; Absent tenderness Respiratory Respiratory exam: Present normal lung sounds bilaterally; Absent respiratory distress Cardiovascular Cardiovascular exam: Present regular rate and normal rhythm; Absent JVD Abdominal Exam Abdominal exam: Present soft and normal bowel sounds; Absent distention, tenderness or guarding Extremities Exam Extremities exam: Present full ROM and normal capillary refill; Absent calf tenderness Back Exam Back exam: Present normal inspection; Absent tenderness Neurological Exam Neurological exam: Present alert and oriented X3 Psychiatric Psychiatric exam: Present normal affect and normal mood Skin Skin exam: Present warm, dry, intact and normal color Lymphatic Lymphatic Findings: no adenopathy Medical Decision Making Medical Records Medical records reviewed: No I reviewed the patient's medical records. Kapil Inquiry Pt receiving controlled substance: No Vital Signs: 08/29/23 16:25 Temperature 97.9 F Temperature Source Oral Pulse Rate [Right Radial] 60 Respiratory Rate 18 Blood Pressure [Right Arm] 97/55 L Blood Pressure Mean [Right Arm] 69 Blood Pressure Source [Right Arm] Automatic Cuff Blood Pressure Position [Right Arm] Sitting 02 Sat by Pulse Oximetry 99 Oxygen Delivery Method Room Air Orders (Tests/Meds): ORDERS Category Date Time Status Knee XR right 3 views [XR knee RT 3V] Stat Exams 08/29/23 16:30 Taken
[2023-08-29 17:42] VITALS: BP 97/55; PULSE 60; RESP 18; TEMP 36.6; O2SAT 99
== END 2023-08-29 17:30 | disposition home or self-care (01) ==
PROVIDERS: Emergency Provider Nurse Practitioner Family; PCP Family Medicine
DX: M25.561 Pain in right knee (principal); M25.461 Effusion, right knee; M17.0 Bilateral primary osteoarthritis of knee
CPT/HCPCS: 73562; 99204; 99212; G0463

== ENCOUNTER 2023-11-08 11:34 | Emergency (ER) | payer MEDICARE, MEDICAID, SELFPAY ==
[2023-11-08] VITALS (8 sets, daily range): BP systolic 117–138; BP diastolic 61–86; PULSE 51–62; RESP 16–18; TEMP 36.4–36.7; O2SAT 92–97; BMI 22.1
--- NOTE | 2023-11-08 12:41 | CT_ITS ---
FINAL REPORT TECHNIQUE: After the administration of IV contrast, axial images through the abdomen and pelvis was performed by computed tomography. Sagittal and coronal reformatted images were obtained and reviewed. This study was performed with techniques to keep radiation doses as low as reasonably achievable (ALARA). Individualized dose reduction techniques using automated exposure control or adjustment of mA and/or kV according to the patient's size were employed. CLINICAL HISTORY: lower abdominal pain, RLQ COMPARISON: 11/20/2022 FINDINGS: Abdomen: Lung bases are clear. The gallbladder is unremarkable. Liver has an unremarkable CT appearance. The spleen, pancreas and adrenal glands are unremarkable. Kidneys show no mass or obstruction. No bowel obstruction or fluid collection is seen. Pelvis: There is no evidence of appendicitis. Right inguinal hernia containing distal small bowel is identified. The prostate is mildly enlarged. The bladder is unremarkable. Pelvic bowel loops are unremarkable. No fluid collection or adenopathy is seen. IMPRESSION: Right inguinal hernia containing distal small bowel. No evidence of appendicitis. Reviewed, Interpreted and Dictated by Benson Jamison MD Transcribed by Marlene Morelos Authenticated and [facility]
[2023-11-08 12:45] LABS: Microscopic, Urine URINE MICROSCOPIC (MICROSCOPIC)
--- NOTE | 2023-11-08 12:46 | ED_ITS ---
Discharge Plan Disposition Patient Disposition: Home, Self-Care Condition: Good Prescriptions Prescriptions: No Action aspirin [Adult Low Dose Aspirin] 81 mg tablet,delayed release (DR/EC) 81 mg PO ONCE isosorbide mononitrate 60 mg tablet extended release 24 hr 60 mg PO DAILY 90 Days Qty: 90 metoprolol succinate 50 mg tablet extended release 24 hr 50 mg PO DAILY 90 Days Qty: 90 triamterene-hydrochlorothiazid 37.5-25 mg tablet 1 tab PO DAILY 90 Days Qty: 90 alfuzosin 10 mg tablet extended release 24 hr 10 mg PO DAILY atorvastatin 40 mg tablet 40 mg PO DAILY torsemide 20 mg tablet 20 mg PO DAILY dapagliflozin propanediol [Farxiga] 10 mg tablet 10 mg PO DAILY methylprednisolone 4 mg Tablets,Dose Pack 4 mg PO DIRECTED 6 Days Qty: 21 0RF Rx Instructions: Take 1 pack as directed for 6 days Referrals Follow up/Referrals: Man Marquez MD [Staff Physician] - See instructions Willian Green [Primary Care Provider] - See instructions Davion Ronquillo MD [Staff Physician] - See instructions Activity Restrictions/Add. Instructions Additional Instructions/Restrictions: You were evaluated in the emergency department today. Please follow-up with general surgery. Call their office to schedule an appointment. Return to the emergency department for new or worsening symptoms, such as significant worsening of pain, significant worsening in swelling of the hernia, hardening of the hernia, skin color changes over the hernia, nausea and vomiting, or inability to have a bowel movement or pass gas. Clinical Impressions Clinical Impression: Hernia, inguinal, right Instructions Patient Instructions: DI for Groin Hernia Discharge ED Provider: Brooklyn Kay General Adult HPI General Chief complaint: Abdominal Pain Stated complaint: abd pain Time Seen by Provider: 11/08/23 12:00 Mode of Arrival: Ambulatory Source of Information: Patient and Relative Limitations: No Limitations Description of Symptoms (Recalled from ER Triage Doc. by RN): c/o lower abdomen cramping that kept him awake all night, pt is a poor historian but states he has seen a few MDs over this issue, one tells him that he has a hernia and one doesnt. Daughter reports that she wanted to bring him in to be checked for dehydration, states he doesnt drink much fluids and is active outside working around the house. 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 Patient states that he has intermittently had issues in the past that he was told by his primary care doctor that he has a hernia, but he was told at that he does not have a hernia. He states that he was having significant cramping in his lower abdomen overnight as well as some nausea, but no vomiting or changes in bowel movements. He had a good bowel movement earlier before arrival, and he currently states that he is feeling a little bit better. He does not drink very much but he has been active working around the house and outside. He does note that he has a rash concerning for chiggers after laying outside in the grass. It is itchy and mostly all over his abdomen and groin. No fevers, chills, chest pain, shortness of breath, or other concerns. Related Data Home Medications Medication Instructions Recorded Confirmed aspirin 81 mg tablet,delayed 81 mg PO ONCE 08/29/17 09/20/23 release (Adult Low Dose Aspirin) alfuzosin 10 mg tablet,extended 10 mg PO DAILY 06/09/22 09/20/23 release 24 hr isosorbide mononitrate 60 mg 60 mg PO DAILY 90 days #90 tabs 06/09/22 09/20/23 tablet,extended release 24 hr metoprolol succinate 50 mg 50 mg PO DAILY 90 days #90 tabs 06/09/22 09/20/23 tablet,extended release 24 hr triamterene 37.5 1 tab PO DAILY 90 days #90 tabs 06/09/22 09/20/23 mg-hydrochlorothiazide 25 mg tablet atorvastatin 40 mg tablet 40 mg PO DAILY 08/29/23 09/20/23 dapagliflozin propanediol 10 mg 10 mg PO DAILY 08/29/23 09/20/23 tablet (Farxiga) torsemide 20 mg tablet 20 mg PO DAILY 08/29/23 09/20/23 Previous Rx's Medication Instructions Recorded methylprednisolone 4 mg tablets in 4 mg PO DIRECTED 6 days #21 tabs 08/29/23 a dose pack Allergies Allergy/AdvReac Type Severity Reaction Status Date / Time Latex, Natural Rubber Allergy Verified 09/20/23 14:40 [facility] Disclaimer: The information contained in this section may have been updated after the patient was seen, as this information can be updated by other users. Medical History Aortic stenosis Abnormal electrocardiogram [ECG] [EKG] Cardiac murmur CKD (chronic kidney disease) HLD (hyperlipidemia) HTN (hypertension) Dyspnea Chest pain CAD (coronary artery disease) Chest pain Surgical History History of heart artery stent History of cardiac cath Family History Other No significant family history Social History Smoking Status: Never smoker alcohol intake: never current occupational status: retired Travel in the last 8 weeks: None ROS Obtained: Yes All systems reviewed & no additional complaints except as documented Physical Exam General General appearance: alert and in no apparent distress Head Head exam: atraumatic and normocephalic Eye Eye exam: Present normal appearance, PERRL and EOMI ENT ENT exam: Present normal exam, normal oropharynx, mucous membranes moist and normal external ear exam Neck Neck exam: Present normal inspection, full ROM and trachea midline; Absent tenderness Chest Chest inspection: Present normal inspection and symmetric chest wall rise; Absent tenderness Respiratory Respiratory exam: Present normal lung sounds bilaterally; Absent respiratory distress, wheezes, stridor or accessory muscle use Cardiovascular Cardiovascular exam: Present regular rate and normal rhythm Abdominal Exam Abdominal exam: Present soft and tenderness (Mild lower abdomen, some bulging in his right lower abdomen); Absent distention or guarding Extremities Exam Extremities exam: Present normal inspection, full ROM and normal capillary refill; Absent tenderness or edema Back Exam Back exam: Present normal inspection and full ROM; Absent tenderness Neurological Exam Neurological exam: Present alert, oriented X3, CN II-XII intact and normal gait; Absent motor sensory deficit Psychiatric Psychiatric exam: Present normal affect and normal mood Skin Skin exam: Present warm, dry and rash (Erythematous maculopapular rash about the abdomen and groin) Medical Decision Making Medical Records Medical records reviewed: Yes I reviewed the patient's medical records. Kapil Inquiry Pt receiving controlled substance: No Vital Signs: 11/08/23 11:37 11/08/23 12:32 11/08/23 13:00 Temperature 97.6 F Temperature Source Oral Pulse Rate 55 L 52 L Pulse Rate [Left Radial] 62 Respiratory Rate 16 Blood Pressure 117/61 117/63 Blood Pressure [Right Arm] 138/86 Blood Pressure Mean Blood Pressure Mean [Right Arm] 103 Blood Pressure Source [Right Arm] Automatic Cuff Blood Pressure Position [Right Arm] Sitting 02 Sat by Pulse Oximetry 95 96 92 L Oxygen Delivery Method Room Air 11/08/23 13:30 11/08/23 14:30 11/08/23 15:00 Temperature Temperature Source Pulse Rate 51 L 54 L 54 L Pulse Rate [Left Radial] Respiratory Rate Blood Pressure 118/61 122/63 131/62 Blood Pressure [Right Arm] Blood Pressure Mean 81 85 Blood Pressure Mean [Right Arm] Blood Pressure Source [Right Arm] Blood Pressure Position [Right Arm] 02 Sat by Pulse Oximetry 94 L 96 95 Oxygen Delivery Method 11/08/23 15:30 11/08/23 15:55 Temperature 98.0 F Temperature Source Pulse Rate 55 L 54 L Pulse Rate [Left Radial] Respiratory Rate 18 Blood Pressure 137/67 137/67 Blood Pressure [Right Arm] Blood Pressure Mean 90 Blood Pressure Mean [Right Arm] Blood Pressure Source [Right Arm] Blood Pressure Position [Right Arm] 02 Sat by Pulse Oximetry 95 Oxygen Delivery Method Room Air Lab Data Lab results reviewed: Yes I reviewed the patient's lab results. Lab Results 11/08/23 11:41: Urine Color Yellow, Urine Appearance Clear, Urine pH 6.0, Ur Specific [place] 1.020, Urine Protein Negative, Urine Glucose (UA) 2+, Urine Ketones Negative, Urine Blood Negative, Urine Nitrate Negative, Urine Bilirubin Negative, Urine Urobilinogen 0.2, Ur Leukocyte Esterase Negative, Urine RBC None, Urine WBC None, Ur Squamous Epith Cells None, Urine Bacteria None 11/08/23 11:57: WBC 4.6 L, RBC 4.75, Hgb 16.2, Hct 48.7, MCV 102.5 H, MCH 34.1 H , MCHC 33.2, RDW 14.2, Plt Count 89 L, MPV 9.8, Neut % (Auto) 70.3, Lymph % (Auto) 18.6, Sharp % (Auto) 6.1, Eos % (Auto) 4.0, Baso % (Auto) 1.1, Neut # (Auto) 3.3, Lymph # (Auto) 0.9, Sharp # (Auto) 0.3, Eos # (Auto) 0.2, Baso # (Auto) 0.1, Sodium 142, Potassium 4.2, Chloride 108 H, Carbon Dioxide 33 H, Anion Gap 5.2, BUN 22 H, Creatinine 0.80, Estimated Creat Clear 51, Estimated GFR 92, Est GFR ( Amer) 111, Glucose 111 H, Calcium 9.3, Total Bilirubin 1.4 H, AST 37, ALT 16, Alkaline Phosphatase 87, Total Protein 6.8, Albumin 3.8, Globulin 3.0, Albumin/Globulin Ratio 1.3, Lipase 42 11/08/23 11:57 11/08/23 11:57 Orders (Tests/Meds): ED MEDICATIONS Discontinued Medications Generic Name Dose Route Start Last Admin Trade Name Freq PRN Reason Stop Dose Admin Iopamidol 75 ml 11/08/23 13:57 11/08/23 13:58 Iopamidol-370 (76%);100ml Bottle IV 11/08/23 13:58 75 ml ONCE ONE Administration Sodium Chloride 10 ml 11/08/23 13:57 11/08/23 13:58 Sodium Chloride 0.9% 10ml Syr (Rad Only) IV 11/08/23 13:58 10 ml ONCE ONE Administration ORDERS Category Date Time Status CT abdomen pelvis w con Stat Cat Scan 11/08/23 12:41 Completed CBC w/Auto Diff [Complete Blood Count Auto Diff] Stat Lab 11/08/23 11:57 Completed CMP [Comprehensive Metabolic Panel] Stat Lab 11/08/23 11:57 Completed Lipase Stat Lab 11/08/23 11:57 Completed UA [Urinalysis and Microscopic] Stat Lab 11/08/23 11:41 Completed Medical Decision Narrative: In summary, this patient is a 88-year-old male presenting to the Emergency Department for evaluation of lower abdominal pain, cramping, and nausea. Differential diagnoses considered include but are not limited to constipation, colitis, bowel obstruction, hernia, cystitis, pyelonephritis. Ruling out the most morbid conditions drove assessment. It should be noted patient's history includes hypertension, hyperlipidemia, CKD, CAD which may or may not be at goal therapy. This complicates all aspects of care by increasing patient's risk for morbidity. I reviewed patient's past medical records and noted previous evaluation at for his TAVR. I also noted that they had done a right lower quadrant ultrasound at that time which did not demonstrate a hernia. On exam, the patient is resting comfortably in bed in no acute distress. He has some mild lower abdominal tenderness as well as an erythematous maculopapular rash that he thinks is chiggers. No dermatomal pattern concerning for shingles. Abdominal exam is otherwise benign. Vitals are reassuring cardiac telemetry. Patient declines need for pain or nausea medication at this time. Workup included CBC, CMP, lipase, urinalysis, and CT abdomen pelvis with IV contrast. I independently interpreted CT scan prior to the radiologist read and noted right inguinal hernia that does not appear to be causing any sort of bowel obstruction. Please see their read for final interpretation. Labs were obtained that demonstrated no acutely concerning abnormalities. On reassessment, patient is resting comfortably and states he continues to feel fine. He has soft hernia that is reducible without other acute concerns. Given that he had a large bowel movement and his pain resolved, I feel that he likely was having pain in his hernia secondary to constipation. I advised that he follow-up very closely with general surgery for evaluation and management of this hernia. I given strict return precautions should he develop any symptoms of incarcerated/strangulated hernia. Patient expressed understanding and agreement. Family updated the plan of care. Patient was discharged with strict return precautions and instructions for close follow-up after all questions were answered. Critical Care Critical Care Time Critical Care Time: No
[2023-11-08 12:47] LABS: Appearance,Urine CLEAR (Clear); Bilirubin,Urine Negative (Negative); Blood, Urine Negative (Negative); Color,Urine YELLOW (Yellow); Glucose,Urine (UA) 2+ (Negative); Ketones,Urine Negative (Negative); Leukocyte Esterase,Urine Negative (Negative); Nitrate,Urine Negative (Negative); Protein,Urine Negative (Negative); Urobilinogen,Urine 0.2 EU/dl (0.2)
[2023-11-08 12:48] LABS: Basophils # 0.1 K/mm3 (0-0.2); Basophils % 1.1 % (0.1-2.0); Eosinophils # 0.2 K/mm3 (0.0-0.4); Hematocrit 48.7 % (42.0-52.0); Hemoglobin 16.2 g/dL (14.1-18.0); Lymphocytes # 0.9 K/mm3 (0.7-4.5); Lymphocytes % 18.6 % (10-50); Mean Corpuscular HGB Conc 33.2 g/dL (31.8-35.4); Mean Corpuscular Hemoglobin 34.1 pg (27.0-31.2); Mean Corpuscular Volume 102.5 fl (80-94); Mean Platelet Volume 9.8 fl (7.4-10.4); Monocytes # 0.3 K/mm3 (0.1-1.0); Monocytes % 6.1 % (1.7-9.3); Neutrophils # 3.3 K/mm3 (1.8-7.8); Neutrophils % 70.3 % (37.0-80.0); Platelet Count 89 K/mm3 (142-424); Red Blood Count 4.75 M/mm3 (4.60-6.20); Red Cell Distribution Width 14.2 % (11.5-17.5); White Blood Count 4.6 K/mm3 (4.8-10.8)
[2023-11-08 12:53] LABS: Chloride 108 mmol/L (98-107); Potassium 4.2 mmoL/L (3.5-5.1); Sodium 142 mmol/L (136-145)
[2023-11-08 12:55] LABS: Alanine Aminotransferase 16 U/L (12-78); Alkaline Phosphatase 87 U/L (38-126); Anion Gap 5.2 mEq/L (5-15); Aspartate Amino Transferase 37 U/L (17-59); Bilirubin,Total 1.4 mg/dl (0.2-1.3); Blood Urea Nitrogen 22 mg/dl (9-20); Carbon Dioxide 33 mmol/L (22.0-30.0); Creatinine Clearance Estimated 51 mL/min (50-200); Estimated Glomerular Filt Rate 92 ml/min (>60); GFR (African American) 111 ML/MIN (>60)
[2023-11-08 12:56] LABS: Albumin Level 3.8 g/dl (3.5-5.0); Albumin/Globulin Ratio 1.3 (1.1-1.8); Calcium 9.3 mg/dl (8.4-10.2); Glucose 111 mg/dl (74-100); Lipase 42 U/L (23-300); Total Protein,Serum 6.8 g/dl (6.3-8.2)
[2023-11-08] MEDS: IOPAMIDOL-370 (76%);100ML BOTTLE 75 ML IV (13:58)
[2023-11-08] MEDS: SODIUM CHLORIDE 0.9% 10ML SYR (RAD ONLY) 10 ML IV (13:58)
--- NOTE | 2023-11-08 14:02 | PC.NURSE ---
pt back from CT
== END 2023-11-08 15:56 | disposition home or self-care (01) ==
PROVIDERS: Emergency Provider Emergency Medicine; PCP Family Medicine
DX: R10.30 Lower abdominal pain, unspecified (principal); K40.90 Unilateral inguinal hernia, without obstruction or gangrene, not specified as recurrent; R21 Rash and other nonspecific skin eruption; N18.9 Chronic kidney disease, unspecified; I11.9 Hypertensive heart disease without heart failure; I25.10 Atherosclerotic heart disease of native coronary artery without angina pectoris; E78.5 Hyperlipidemia, unspecified; Z95.5 Presence of coronary angioplasty implant and graft
CPT/HCPCS: 74177; 80053; 81001; 83690; 85025; 99284; Q9967

== ENCOUNTER 2023-11-29 10:36 | Outpatient (CLI) | payer MEDICARE, MEDICAID, SELFPAY ==
[2023-11-29 10:41] LABS: Microscopic, Urine URINE MICROSCOPIC (MICROSCOPIC)
[2023-11-29 11:02] LABS: Basophils # 0.1 K/mm3 (0-0.2); Basophils % 1.2 % (0.1-2.0); Eosinophils # 0.3 K/mm3 (0.0-0.4); Eosinophils % 5.9 % (0.1-12.0); Hematocrit 49.7 % (42.0-52.0); Hemoglobin 15.7 g/dL (14.1-18.0); Lymphocytes # 1.2 K/mm3 (0.7-4.5); Mean Corpuscular HGB Conc 31.5 g/dL (31.8-35.4); Mean Corpuscular Hemoglobin 33.5 pg (27.0-31.2); Mean Corpuscular Volume 106.2 fl (80-94); Mean Platelet Volume 9.8 fl (7.4-10.4); Monocytes # 0.4 K/mm3 (0.1-1.0); Monocytes % 7.2 % (1.7-9.3); Neutrophils # 3.4 K/mm3 (1.8-7.8); Neutrophils % 63.6 % (37.0-80.0); Platelet Count 118 K/mm3 (142-424); Red Blood Count 4.68 M/mm3 (4.60-6.20); Red Cell Distribution Width 14.1 % (11.5-17.5); White Blood Count 5.4 K/mm3 (4.8-10.8)
[2023-11-29 11:04] LABS: Appearance,Urine CLEAR (Clear); Bilirubin,Urine Negative (Negative); Blood, Urine Negative (Negative); Color,Urine YELLOW (Yellow); Glucose,Urine (UA) 3+ (Negative); Ketones,Urine Negative (Negative); Leukocyte Esterase,Urine Negative (Negative); Nitrate,Urine Negative (Negative); PH,Urine 5.5 (5.0-8.5); Protein,Urine Negative (Negative); Specific Gravity, Urine 1.015 (1.005-1.030); Urobilinogen,Urine 0.2 EU/dl (0.2)
[2023-11-29 11:17] LABS: Blood Urea Nitrogen 32 mg/dl (9-20); Calcium 9.1 mg/dl (8.4-10.2); Carbon Dioxide 34 mmol/L (22.0-30.0); Chloride 107 mmol/L (98-107); Estimated Glomerular Filt Rate 92 ml/min (>60); GFR (African American) 111 ML/MIN (>60); Glucose 129 mg/dl (74-100); Sodium 144 mmol/L (136-145)
== END 2023-11-29 23:59 | disposition home or self-care (01) ==
LOC: LAB 10:37
PROVIDERS: PCP Family Medicine; Visit Provider Surgery
DX: K40.90 Unilateral inguinal hernia, without obstruction or gangrene, not specified as recurrent (principal)
CPT/HCPCS: 36415; 80048; 81001; 85025

== ENCOUNTER 2024-02-02 17:21 | Emergency (ER) | payer MEDICARE, MEDICAID, SELFPAY ==
[2024-02-02 17:55] VITALS: BP 127/72; PULSE 58; RESP 20; TEMP 36.4; O2SAT 97; BMI 23.3
--- NOTE | 2024-02-02 18:05 | XR_ITS ---
PROCEDURE INFORMATION: Exam: XR Right Hip Exam date and time: 02/02/2024 6:18 PM Age: 88 years old Clinical indication: Hip pain; Right hip TECHNIQUE: Imaging protocol: Radiologic exam of the right hip. Views: 2 or 3 views hip with pelvis when performed. COMPARISON: CT ABDOMEN PELVIS W CON 11/08/2023 1:50 PM FINDINGS: Bones/joints: There is diffuse osseous demineralization. There is mild osteoarthritis of the hips with joint space narrowing, productive changes, and subchondral sclerosis. There are partially visualized degenerative changes of the sacroiliac joints and lumbar spine as well as some degenerative disease of the pubic symphysis. The osseous structures are intact, with no signs of acute fracture, dislocation, or malalignment. Age-related degenerative changes are observed. There is no evidence of abnormal bone density or destructive lesions. Soft tissues: The soft tissues appear within normal limits. Gastrointestinal tract: There is large volume stool throughout the colon. Vasculature: Scattered atherosclerotic disease of the arterial vasculature. IMPRESSION: At the time of imaging, the study shows no acute osseous abnormalities but does reveal signs of age-related degenerative changes.
--- NOTE | 2024-02-02 18:08 | XR_ITS ---
PROCEDURE INFORMATION: Exam: XR Lumbosacral Spine Exam date and time: 02/02/2024 6:21 PM Age: 88 years old Clinical indication: Low back pain TECHNIQUE: Imaging protocol: Radiologic exam of the lumbosacral spine. Views: 2 or 3 views. COMPARISON: CR Hip R 02/02/2024 6:18 PM FINDINGS: Bones/joints: There are contour deformities of the superior endplates of L2, L3, and L4 which appear relatively stable from the abdominal CT dated November 08, 2023 but for which subtle compression fracture would be difficult to exclude. The alignment of the lumbar spine is within normal limits with maintained lumbar lordosis. There are moderate degenerative changes characterized by disc space narrowing at multiple levels, most pronounced in the lower lumbar region. There is evidence of osteophyte formation along the vertebral bodies. The facet joints show moderate hypertrophic changes. Soft tissues: Unremarkable. Vasculature: The visualized portions of the abdominal aorta and pelvic bones appear unremarkable. Other findings: Prevertebral and paravertebral soft tissues appear unremarkable. IMPRESSION: 1. There are contour deformities of the superior endplates of L2, L3, and L4 which appear relatively stable from the abdominal CT dated November 08, 2023 but for which subtle compression fracture would be difficult to exclude. 2. Moderate degenerative changes in the lumbar spine, including disc space narrowing and osteophyte formation.
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
[2024-02-02 18:23] LABS: Microscopic, Urine URINE MICROSCOPIC (MICROSCOPIC)
[2024-02-02 18:37] LABS: Appearance,Urine CLEAR (Clear); Bilirubin,Urine Negative (Negative); Blood, Urine Negative (Negative); Color,Urine YELLOW (Yellow); Glucose,Urine (UA) 2+ (Negative); Ketones,Urine Negative (Negative); Leukocyte Esterase,Urine Negative (Negative); Nitrate,Urine Negative (Negative); PH,Urine 5.5 (5.0-8.5); Protein,Urine Negative (Negative); Specific Gravity, Urine 1.025 (1.005-1.030); Urobilinogen,Urine 0.2 EU/dl (0.2)
[2024-02-02 19:16] VITALS: BP 127/72; PULSE 58; RESP 20; TEMP 36.4; O2SAT 97
[2024-02-02 19:16] LABS: RBC,Urine Occasional #/hpf (0-3)
[2024-02-02 19:17] LABS: Bacteria,Urine 1+ /lpf; Mucus,Urine 2+ /lpf
== END 2024-02-02 19:18 | disposition home or self-care (01) ==
PROVIDERS: Emergency Provider Nurse Practitioner; PCP Family Medicine
DX: M54.50 Low back pain, unspecified (principal)
CPT/HCPCS: 72100; 73502; 81001; 99213; G0381

== ENCOUNTER 2024-03-18 11:26 | Emergency (ER) | payer MEDICARE, MEDICAID, SELFPAY ==
[2024-03-18 11:28] VITALS: BP 132/74; PULSE 72; RESP 18; TEMP 36.3; O2SAT 98; BMI 23.3
--- NOTE | 2024-03-18 11:40 | ECG_ITS ---
APPROVED REPORT Exam: Resting ECG HR:71 bpm ECG Measurements Heart Rate 71 AXES MS 174 P 89 QRSd 94 QRS -52 QT 395 T 51 QTc 418 Conclusion SINUS RHYTHM LEFT AXIS DEVIATION [QRS AXIS < -30] INCOMPLETE RIGHT BUNDLE BRANCH BLOCK [90+ ms QRS DURATION, TERMINAL R IN V1/V2, 40+ ms S IN I/aVL/V4/V5/V6] SEPTAL MYOCARDIAL INFARCTION , OF INDETERMINATE AGE [40+ ms Q WAVE IN V1/V2] Electronically signed by : JARON IRENE, 03/18/2024 15:23:59
--- NOTE | 2024-03-18 11:55 | XR_ITS ---
PROCEDURE INFORMATION: Exam: XR Chest Exam date and time: 03/18/2024 11:54 AM Age: 88 years old Clinical indication: Shortness of breath; Additional info: SOA, presyncope TECHNIQUE: Imaging protocol: Radiologic exam of the chest. Views: 1 view. COMPARISON: CR XR CHEST PORTABLE 08/09/2023 11:07 AM FINDINGS: Lungs: No evidence of airspace infiltrate. No pulmonary edema. Pleural spaces: No visible pleural effusion. No pneumothorax. Heart/Mediastinum: Cardiomediastinal silouhette is within normal limits. Bones/joints: No evidence of acute osseous abnormality. IMPRESSION: No evidence of acute cardiopulmonary disease.
[2024-03-18 12:01] VITALS: BP 105/69; PULSE 71; O2SAT 96
[2024-03-18 12:02] LABS: Basophils # 0.1 K/mm3 (0-0.2); Basophils % 1.3 % (0.1-2.0); Eosinophils # 0.3 K/mm3 (0.0-0.4); Eosinophils % 5.3 % (0.1-12.0); Hematocrit 46.6 % (42.0-52.0); Hemoglobin 15.8 g/dL (14.1-18.0); Lymphocytes # 1.1 K/mm3 (0.7-4.5); Lymphocytes % 21.8 % (10-50); Mean Corpuscular HGB Conc 33.9 g/dL (31.8-35.4); Mean Corpuscular Hemoglobin 33.1 pg (27.0-31.2); Mean Corpuscular Volume 97.5 fl (80-94); Mean Platelet Volume 9.4 fl (7.4-10.4); Monocytes # 0.4 K/mm3 (0.1-1.0); Monocytes % 6.7 % (1.7-9.3); Neutrophils # 3.4 K/mm3 (1.8-7.8); Neutrophils % 64.9 % (37.0-80.0); Platelet Count 112 K/mm3 (142-424); Red Blood Count 4.77 M/mm3 (4.60-6.20); Red Cell Distribution Width 14.2 % (11.5-17.5); White Blood Count 5.2 K/mm3 (4.8-10.8)
[2024-03-18 12:05] LABS: Albumin Level 3.9 g/dl (3.5-5.0); Chloride 106 mmol/L (98-107); Potassium 4.4 mmoL/L (3.5-5.1); Sodium 143 mmol/L (136-145)
[2024-03-18 12:07] LABS: Alanine Aminotransferase 21 U/L (12-78); Aspartate Amino Transferase 44 U/L (17-59); Bilirubin,Total 1.6 mg/dl (0.2-1.3); Blood Urea Nitrogen 23 mg/dl (9-20); Creatinine Clearance Estimated 54 mL/min (50-200); Estimated Glomerular Filt Rate 80 ml/min (>60); GFR (African American) 97 ML/MIN (>60)
[2024-03-18 12:08] LABS: Albumin/Globulin Ratio 1.3 (1.1-1.8); Alkaline Phosphatase 89 U/L (38-126); Anion Gap 9.4 mEq/L (5-15); Calcium 9.2 mg/dl (8.4-10.2); Carbon Dioxide 32 mmol/L (22.0-30.0); Glucose 143 mg/dl (74-100); Magnesium 2.6 mg/dl (1.6-2.3); Total Protein,Serum 6.9 g/dl (6.3-8.2)
[2024-03-18 12:09] LABS: Activated Partial Thrombo Time 26.8 seconds (22.8-30.6); INR 0.93 (0.9-1.1); Prothrombin Time 10.5 seconds (10.1-12.5)
[2024-03-18 12:18] LABS: NT Pro Brain Natriuretic Pep. 413 pg/mL (0-450)
[2024-03-18 12:21] LABS: Troponin I < 0.01 ng/ml (0.00-0.034)
[2024-03-18 12:30] VITALS: BP 114/68; PULSE 71; O2SAT 99
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
[2024-03-18 13:00] VITALS: BP 106/59; PULSE 58; O2SAT 97
[2024-03-18 13:12] LABS: HIV (1&2) Antibody Rapid NONREACTIVE (NONREACTIVE)
[2024-03-18 13:30] VITALS: BP 109/60; PULSE 59; O2SAT 97
[2024-03-18 14:01] LABS: Microscopic, Urine URINE MICROSCOPIC (MICROSCOPIC)
[2024-03-18 14:04] LABS: Appearance,Urine CLEAR (Clear); Bilirubin,Urine Negative (Negative); Blood, Urine Negative (Negative); Color,Urine YELLOW (Yellow); Glucose,Urine (UA) 3+ (Negative); Ketones,Urine Negative (Negative); Leukocyte Esterase,Urine Negative (Negative); Nitrate,Urine Negative (Negative); Protein,Urine Negative (Negative); Specific Gravity, Urine 1.025 (1.005-1.030); Urobilinogen,Urine 0.2 EU/dl (0.2)
[2024-03-18 14:49] VITALS: BP 104/60; PULSE 59; RESP 18; TEMP 36.3; O2SAT 96
[2024-03-20 05:11] LABS: HCV Ab Non Reactive (Non Reactive)
== END 2024-03-18 15:06 | disposition home or self-care (01) ==
PROVIDERS: Emergency Provider Emergency Medicine; PCP Family Medicine
DX: R53.1 Weakness (principal); R55 Syncope and collapse
CPT/HCPCS: 71045; 80053; 81001; 83735; 83880; 84484; 85025; 85610; 85730; 86803; 87389; 93005; 99284

== ENCOUNTER 2024-03-22 13:19 | Outpatient (CLI) | payer MEDICARE, MEDICAID, SELFPAY ==
--- NOTE | 2024-03-22 13:22 | XR_ITS ---
FINAL REPORT CLINICAL HISTORY: osteoarthritis of the left knee COMPARISON: None FINDINGS: Three views of the left knee reveal no evidence of fracture or dislocation. The bony alignment is normal. There is moderate to severe degenerative change. Medial compartment narrowing is noted. There is no evidence of joint effusion. There are vascular calcifications. No acute localized soft tissue abnormality is seen. IMPRESSION: Moderate to severe degenerative change without acute abnormality identified. Reviewed, Interpreted and Dictated by Man Andrews III, MD Transcribed by Nimisha Hawley Authenticated and . [facility]
== END 2024-03-22 23:59 | disposition home or self-care (01) ==
LOC: RAD 13:20
PROVIDERS: PCP Family Medicine; Visit Provider Physician Assistant
DX: M17.12 Unilateral primary osteoarthritis, left knee (principal)
CPT/HCPCS: 73562

== ENCOUNTER 2024-04-24 11:30 | Emergency (ER) | payer MEDICARE, MEDICAID, SELFPAY ==
[2024-04-24] VITALS (7 sets, daily range): BP systolic 99–141; BP diastolic 55–67; PULSE 62–78; RESP 16–26; TEMP 36.7–36.8; O2SAT 93–98; BMI 23.1
[2024-04-24 12:30] LABS: Microscopic, Urine URINE MICROSCOPIC (MICROSCOPIC)
[2024-04-24 12:33] LABS: Appearance,Urine CLEAR (Clear); Bilirubin,Urine Negative (Negative); Blood, Urine Negative (Negative); Color,Urine YELLOW (Yellow); Glucose,Urine (UA) 3+ (Negative); Ketones,Urine Negative (Negative); Leukocyte Esterase,Urine Negative (Negative); Nitrate,Urine Negative (Negative); Protein,Urine Negative (Negative); Specific Gravity, Urine 1.015 (1.005-1.030); Urobilinogen,Urine 0.2 EU/dl (0.2)
[2024-04-24 12:41] LABS: Bacteria,Urine Trace /lpf; Squamous Epithelial Cell,Urine Occasional #/hpf (0-5)
--- NOTE | 2024-04-24 12:41 | CT_ITS ---
FINAL REPORT TECHNIQUE: After the administration of oral and intravenous contrast, axial images were obtained through the abdomen and pelvis by computed tomography. The study was performed with techniques to keep radiation dose as low as reasonably achievable, (ALARA). Individual dose reduction techniques using automated exposure control or adjustment of mA and/or kV according to the patient's size were employed. CLINICAL HISTORY: concern for incarcerated hernia RLQ COMPARISON: 11/08/2023 FINDINGS: Abdomen: Scarring is noted at the lung bases. The liver parenchyma is homogeneous. The gallbladder is absent. The spleen is unremarkable. The pancreas is atrophic. The adrenal glands and kidneys are unremarkable. The aorta is normal in caliber. There is no free fluid or adenopathy. Pelvis: There is a large amount of stool throughout the colon. The appendix is unremarkable. Extensive sigmoid diverticulosis is noted without evidence of diverticulitis. There are postsurgical changes from prior hernia repair with new surgical clips in the right pelvic wall. There is a 3.0 x 2.4 cm cystic focus in the right inguinal region best seen on image 108 of series 3 which is new and may represent a complex seroma or hematoma related to interval surgery. IMPRESSION: Postoperative changes from inguinal hernia repair. Complex cystic structure may represent complex seroma or hematoma. Extensive sigmoid diverticulosis without evidence of diverticulitis. Reviewed, Interpreted and Dictated by Arden Cardona MD Transcribed by Nimisha Hawley Authenticated and . [facility]
--- NOTE | 2024-04-24 12:41 | XR_ITS ---
FINAL REPORT CLINICAL HISTORY: Shortness of breath, ams COMPARISON: 03/18/2024 FINDINGS: The heart size is normal. The mediastinum is normal. There is no focal infiltrate or edema. There are no pleural effusions. There is no pneumothorax. There is no osseous abnormality. IMPRESSION: No acute cardiopulmonary process Reviewed, Interpreted and Dictated by Arden Cardona MD Transcribed by Nimisha Hawley Authenticated and [facility]
[2024-04-24 12:48] LABS: Basophils # 0.1 K/mm3 (0-0.2); Eosinophils # 0.2 K/mm3 (0.0-0.4); Eosinophils % 3.2 % (0.1-12.0); Hemoglobin 15.2 g/dL (14.1-18.0); Lymphocytes # 0.9 K/mm3 (0.7-4.5); Lymphocytes % 18.5 % (10-50); Mean Corpuscular HGB Conc 33.8 g/dL (31.8-35.4); Mean Corpuscular Volume 97.6 fl (80-94); Mean Platelet Volume 12.1 fl (7.4-10.4); Monocytes # 0.5 K/mm3 (0.1-1.0); Monocytes % 9.9 % (1.7-9.3); Neutrophils # 3.4 K/mm3 (1.8-7.8); Neutrophils % 67.2 % (37.0-80.0); Platelet Count 96 K/mm3 (142-424); Red Blood Count 4.61 M/mm3 (4.60-6.20); White Blood Count 5.1 K/mm3 (4.8-10.8)
[2024-04-24 12:53] LABS: Albumin Level 3.7 g/dl (3.5-5.0); Chloride 104 mmol/L (98-107)
[2024-04-24 12:54] LABS: Potassium 4.4 mmoL/L (3.5-5.1); Sodium 140 mmol/L (136-145)
[2024-04-24 12:56] LABS: Anion Gap 11.4 mEq/L (5-15); Blood Urea Nitrogen 26 mg/dl (9-20); Carbon Dioxide 29 mmol/L (22.0-30.0); Creatinine Clearance Estimated 53 mL/min (50-200); Estimated Glomerular Filt Rate 92 ml/min (>60); GFR (African American) 111 ML/MIN (>60)
[2024-04-24 12:57] LABS: Alanine Aminotransferase 27 U/L (12-78); Albumin/Globulin Ratio 1.3 (1.1-1.8); Alkaline Phosphatase 74 U/L (38-126); Aspartate Amino Transferase 44 U/L (17-59); Bilirubin,Total 1.7 mg/dl (0.2-1.3); Globulin 2.9 g/dL (1.3-3.2); Glucose 147 mg/dl (74-100); Lipase 44 U/L (23-300); Magnesium 2.3 mg/dl (1.6-2.3); Total Protein,Serum 6.6 g/dl (6.3-8.2)
[2024-04-24 13:02] LABS: Activated Partial Thrombo Time 26.4 seconds (22.8-30.6); INR 0.98 (0.9-1.1)
[2024-04-24 13:02] LABS: VBG Base Excess 2.2 mmol/L (-2.4-2.3); VBG HCO3 27.2 mmol/L (23-30); VBG Oxygen Saturation 90.1 % (50-70); VBG PCO2 45.8 mmol/L (35-51); VBG PH 7.39 mmol/L (7.31-7.41); VBG PO2 55.2 mmol/L (28-40); VBG Total CO2 28.6 mmol/L (23-27)
[2024-04-24 13:07] LABS: Lactate Venous 2.8 mmol/L (0.4-2.0)
[2024-04-24 13:11] LABS: Troponin I < 0.01 ng/ml (0.00-0.034)
[2024-04-24] MEDS: SODIUM CHLORIDE 0.9% 10ML SYR (RAD ONLY) 10 ML IV (13:12)
[2024-04-24] MEDS: IOPAMIDOL-370 (76%);100ML BOTTLE 75 ML IV (13:12)
[2024-04-24 13:15] LABS: T4 (Thyroxine) 8.6 ug/dl (5.53-11.0)
[2024-04-24 13:28] LABS: Thyroid Stimulating Hormone 2.02 uIU/mL (0.465-4.68)
[2024-04-24 14:06] LABS: Lactic Acid 2.1 mmol/L (0.7-2.1)
[2024-04-24] MEDS: NYSTATIN OINT 100,000 UNITS/GM 15GM 15 GM TP (14:53)
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
[2024-04-24 17:08] LABS: Reflex Lactic Add Lactic Reflex
== END 2024-04-24 15:39 | disposition home or self-care (01) ==
PROVIDERS: Emergency Medicine; Emergency Provider Student in an Organized Health Care Education/Training Program; PCP Family Medicine
DX: R41.82 Altered mental status, unspecified (principal); B37.42 Candidal balanitis
CPT/HCPCS: 71045; 74177; 80053; 81001; 82803; 83605; 83690; 83735; 84436; 84443; 84484; 85025; 85610; 85730; 87040; 99285; Q9967

== ENCOUNTER 2024-12-09 14:47 | Emergency (ER) | payer MEDICARE, MEDICAID, SELFPAY ==
--- OUTSIDE RECORDS SUMMARY | 2024-10-17 10:21 | XMS_ITS | Encounter Summary ---
Author Organization [facility] Address [address] [place] [address] Care Team Providers Care Screen Roller Name Role Phone Willian Green MD Primary Care Provider [phone] Paradise Bishop Unavailable [phone] Encounter Details Date Type Department Care Team (Latest Contact Info) Description 10/17/2024 10:21 AM EDT - 10/17/2024 11:59 PM EDT Hospital Encounter [place] [facility] [address], [address] [place] [address] Closed nondisplaced fracture of seventh cervical vertebra, unspecified fracture morphology, initial encounter ([facility]) Discharge Disposition: Home or Self Care Social History Tobacco Use Types Packs/Day Years Used Date Smoking Tobacco: Never Smokeless Tobacco: Never Alcohol Use Standard Drinks/Week Comments Not Currently 0 (1 standard drink = 0.6 oz pur e alcohol) Humiliation, Afraid, Rape, and Kick questionnair e Answer Date Recorded Within the last year, have y ou been afraid of your partner or ex-partner? No 08/29/2024 Within the last year, have y ou been humiliated or emotionally abused in other ways by your partner or ex-partner? No Within the last year, have y ou been kicked, hit, slapped, or otherwise physically hurt by your partner or ex-partner? No 08/29/2024 Within the last year, have y ou been raped or forced to have any kind of sexual activity by your partner or ex-partner? No 08/29/2024 PHQ-2 Answer Date Recorded Patient Health Questionnaire-2 Score 0 07/04/2024 Hunger Vital Sign Answer Date Recorded Within the past 12 months, y ou worried that your food would run out before you got the money to buy more. Never true 08/30/19 25 Within the past 12 months, t he food you bought just didn't last and you didn't have money to get more. Never true 08/29/2024 PRAPARE - Transportation Answer Date Re corded In the past 12 months, has l ack of transportation kept you from medical appointments or from getting medications? No 08/16 In the past 12 months, has l ack of transportation kept you from meetings, work, or from getting things needed for daily living? No 08/29/2024 PHQ-9 Answer Date Recorded Patient Health Questionnaire-9 Score 0 07/04/2024 Housing Stability Vital Sign Answer Jesus e Recorded In the last 12 months, was t here a time when you were not able to pay the mortgage or rent on time? No 08/29/2024 In the past 12 months, how m any times have you moved where you were living? 0 08/29/2024 At any time in the past 12 m [facility], were you homeless or living in a nursing home (including now)? No 08/29/2024 CAGE ASSESSMENT Answer Date Recorded Cage unable to access Not on file 08/28/2022 Cage max number of drinks Not on file 2022 Cage Beverages a week Not on file 08/28/2022 Have you ever felt you should CUT down on your d rinking? 0 08/28/2022 Have you been ANNOYED by people criticizing your drinking? 0 08/28/2022 Have you felt GUILTY about your drinking? 0 08/28/2022 Have you had a drink first t princess in the morning (EYE-COAL SCREENER) to steady your nerves or to get rid of a hangover? 0 08/28/2022 CAGE Questionnaire Score 0 023 Utilities Answer Date Recorded In the past 12 months has th e electric, gas, oil, or water company threatened to shut off services in your home? No 08/29/2024 Sex and Gender Information Value Date Recorded Sex Assigned at Not on file Legal Sex Male 6:56 PM EDT Gender Identity Not on file Sexual Orientation Not on file documented as of this encounter Medications at Time of Discharge acetaminophen (Tylenol) 325 MG tablet Take 2 tablets by mouth 4 times a day. Under [place] law, monthly prescriptions (30 days) can be refilled at 25 days and three-month prescriptions (90 days) at 80 days. Please contact the insurance company with questions if refills are denied. 100 tablet 09/05/2024 ASPIRIN 81 MG chewable tablet Chew 1 tablet daily. atorvastatin (Lipitor) 40 MG tablet Take 1 tablet by mouth daily. dapagliflozin (Farxiga) 10 MG tablet TAKE 1 TABLET BY MOUTH ONCE A DAY 90 tablet 3 07/23/2024 metoprolol succinate XL (Toprol-XL) 25 MG 24 hr tablet Take 1 tablet by mouth daily. Do not crush or chew. polyethylene glycol (Miralax) 17 g packet Take 17 g by mouth 2 times a day. 30 packet 09/05/2024 senna-docusate (Anna-Colace) 8.6-50 MG tablet Take 2 tablets by mouth 2 times a day. 60 tablet 09/05/2024 spironolactone (Aldactone) 25 MG tablet Take 1 tablet (25 mg) by mouth 1 (one) time each day if needed (lower extremity edema). 60 tablet 3 03/23/2024 tamsulosin (Flomax) 0.4 MG 24 hr capsule Take 1 capsule by mouth 1 time each day with dinner. 06/30/2024 torsemide (Demadex) 20 MG tablet TAKE 1 TABLET BY MOUTH ONCE A DAY 30 tablet 6 10/16/2024 documented as of this encounter Plan of Treatment Upcoming Encounters Date Type Department Care Team (Late st Contact Info) Description 07/10/2025 1:45 PM EDT Office Visit [facility] [place] [facility] [address] [facility] [place] [address] Rm Hernandez MD [address] [place] [address] documented as of this encounter Procedures Procedure Name Priority Date/Time Associated Diagnosis Comments XR CERVICAL SPINE COMPLETE 4 TO 5 VIEWS Routine 10/17/2024 10:51 AM EDT Closed nondisplaced fracture of seventh cervical vertebra, unspecified fracture morphology, initial encounter ([facility]) documented in this encounter Results * XR Cervical Spine Complete 4 To 5 Views (10/17/2024 10:51 AM EDT) Anatomical Region Laterality Modality Spine, C-spine Digital Radiogra phy Impressions 10/17/2024 11:40 AM EDT 1. Known anterior superior endplate fracture at C7 is not perceptible on this exam. Normal vertebral alignment without instability in flexion or extension. 2. Severe degenerative disc changes at C5-C6. 3. 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 4. T5 compression deformity. CRITICAL RESULT: No. COMMUNICATION: Per this written report. Drafted by Pierce Gracia MD on 10/17/2024 11:35 AM Final report signed by Pierce Gracia MD on 10/17/2024 11:40 AM Narrative 10/17/2024 11:40 AM EDT CLINICAL INDICATION: rule out instability TECHNIQUE: XR CERVICAL SPINE COMPLETE 4 TO 5 VIEWS COMPARISON: August 28, 2024 FINDINGS: 4 views of the cervical spine show severe degenerative disc changes at C5-C6. Vertebral alignment is normal. No instability in flexion or extension. Small anterior superior endplate fracture at C7 is not perceptible on this exam. T5 compression deformity. 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 Left carotid artery calcification. Lung apices are normal. Procedure Note Pierce Gracia MD - 10/17/2024 CLINICAL INDICATION: rule out instability TECHNIQUE: XR CERVICAL SPINE COMPLETE 4 TO 5 VIEWS COMPARISON: August 28, 2024 FINDINGS: 4 views of the cervical spine show severe degenerative disc changes atC5-C6. Vertebral alignment is normal. No instability in flexion orextension. Small anterior superior endplate fracture at C7 is notperceptible on this exam. T5 compression deformity. Ankylosis of rightC3-C4 and left C4-C5 facet articulations is better appreciated on priorCT. Left carotid artery calcification. Lung apices are normal. IMPRESSION: 1.Known anterior superior endplate fracture at C7 is not perceptible onthis exam. Normal vertebral alignment without instability in flexion orextension. 2.Severe degenerative disc changes at C5-C6. 3.Ankylosis of right C3-C4 and left C4-C5 facet articulations is betterappreciated on prior CT. 4.T5 compression deformity. CRITICAL RESULT: No. COMMUNICATION: Per this written report. Drafted by Pierce Gracia MD on 10/17/2024 11:35 AM Final report signed by Pierce Gracia MD on 10/17/2024 11:40 AM Paradise ROSA IMG XR PROCEDURES Final Result documented in this encounter Visit Diagnoses Diagnosis Closed nondisplaced fracture of seventh cervical vertebra, unspecified fracture morphology, initial encounter ([facility]) documented in this encounter Additional Health Concerns Assessment Noted Time PHQ-9 Depression Total Score: 0 07/05/19 11:38 AM EDT A fall risk assessment has been complete d for the patient 10/17/2024 11:04 AM EDT A Body Mass Index follow-up plan has been documented for the patient 10/17/2024 12:02 PM EDT documented as of this encounter Care Teams Screen Roller Relationship Specialty Start Date End Date Willian Green MD [address] [place] [address] PCP - General 08/20/22 Paradise Bishop PA [address] [facility] [address] [place] [address] Physician Pattern Ruler Neurosurgery 10/17/24 documented as of this encounter
--- OUTSIDE RECORDS SUMMARY | 2024-10-17 10:40 | XMS_ITS | Encounter Summary ---
Author Organization Healthcare Address [address] [place] [address] Care Team Providers Care Vba Programmer Name Role Phone Willian Green MD Primary Care Provider [phone] Paradise Bishop Unavailable [phone] Encounter Details Date Type Department Care Team (Late st Contact Info) Description 10/17/2024 10:40 AM EDT Office Visit [place] [facility] [address], [address] [place] [address] Paradise Bishop PA [address] [place] [address] Closed nondisplaced fracture of seventh cervical vertebra, unspecified fracture morphology, initial encounter ([facility]) (Primary Dx) Social History Tobacco Use Types Packs/Day Years Used Date Smoking Tobacco: Never Smokeless Tobacco: Never Tobacco Cessation:Counseling Given: Not Answered Alcohol Use Standard Drinks/Week Comments Not Currently [...] any time in the past 12 m [facility], were you homeless or living in a half-way (including now)? No 08/29/2024 CAGE ASSESSMENT Answer [...] drink first t princess in the morning (EYE-CARRIAGE DOGGER) to steady your nerves or to get rid of a hangover? 0 08/28/2022 CAGE Questionnaire Score 0 023 Utilities Answer Date Recorded In the past 12 months has th e [employer], gas, oil, or water company threatened to shut off services in your home? No 08/29/2024 Sex and Gender Information Value Date Recorded Sex Assigned at Not on file Legal Sex Male 6:56 PM EDT Gender Identity Not on file Sexual Orientation Not on file documented as of this encounter Last Filed Vital Signs Vital Sign Reading Time Taken Comments Blood Pressure 98/58 10/17/2024 10:57 AM EDT Pulse 63 10/17/2024 10:57 AM EDT Temperature - - Respiratory Rate - - Oxygen Saturation 98% 10/17/2024 10:57 AM EDT Inhaled Oxygen Concentration - - Weight 70.3 kg (155 lb) 10/17/2024 10:57 AM EDT Height 175.3 cm (5' 9 ) 10/17/2024 10:57 AM EDT Body Mass Index 22.89 10/17/2024 10:57 AM EDT documented in this encounter Miscellaneous Notes * Progress Notes - Paradise Bishop PA - 10/17/2024 10:40 AM EDT We had the pleasure of seeing your patient in our clinic today for continued Neurosurgical evaluation. Chief Complaint 6 week hospital follow up for C7 superior anterior endplate fracture. History Of Present Illness Rm Larios is a 89 y.o. male here today for continued neurosurgical surveillance. The patient is now 6 weeks status post a fall that resulted C7 superior anterior endplate fracture. Due to absence of neurological deficit, the patient was treated conservatively with cervical collar. He is here today for follow-up and imaging. The patient is doing very well. He denies any neck pain. He denies any pain. 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 He does ambulate with use of a walker. He denies gait or balance disturbances. He resides at a long-term care nursing facility. He willtake Tylenol daily. He denies bowel or bladder incontinence. He denies nicotine use. Overall, the patient is doing well and has no concerns or questions today. Past Medical History He has a past medical history of CKD (chronic kidney disease) (06/29/2022), Essential hypertension (06/29/2022), and HLD (hyperlipidemia) (06/29/2022). Surgical History He has no past surgical history on file. Family History Family History[1] Social History He reports that he has never smoked. He has never used smokeless tobacco. He reports that he does not currently use alcohol. He reports that he does not use drugs. Medications Current Medications[2] Allergies Amitiza [lubiprostone] and Latex Review of Systems 14 point review of systems was performed and was negative except as noted per HPI. General Physical Exam Constitutional Oriented to person, place, and time. Appears well-developed and well-nourished. Head Normocephalic and atraumatic. Neck No tracheal deviation or JVD noted. Pulmonary/Chest Effort normal, no shortness of breath Neurological Alert and oriented to person, place, and time Skin Skin is warm and dry Psychiatric Normal mood and affect, behavior and judgment Objective: MUSCULOSKELETAL EXAM: Motor Strength Right Left C5: Shoulder abduction (Deltoid) 08/20 08/20 C5: Elbow flexion (Biceps, Brachialis) 08/20 08/20 C6: Wrist extension (ECRB, ECRL) 08/20 08/20 C7: Elbow extension (Triceps) 08/20 08/20 C8: Finger flexion (Telephone Clerk Telegraph Office Strength) 08/20 08/20 T1: Finger abduction 08/20 08/20 Sensation Right Left Neck normal normal C5: Shoulder normal normal C6: Thumb, radial aspect hand/forearm (Radial Nerve) normal normal C7: Long finger (Median Nerve) normal normal C8: Little finger, ulnar aspect of hand/forearm (Ulnar n.) normal normal T1: Medial forearm/arm normal normal Reflexes Right Left C5: Biceps 2/4 2/4 C6: Brachioradialus 2/4 2/4 C7: Triceps 2/ 2/ Hoffmans absent absent Clonus <3 beat <3 beat No tenderness to palpation over the cervical spine. Motor Strength Right Left L2: Hip flexion (Iliopsoas) 08/20 08/20 L3: Knee extension (Quad) 08/20 08/20 L4: Ankle DF (TA) 08/20 08/20 L5: Great Toe DF (EHL) 08/20 08/20 S1: Ankle Pf, Foot Eversion (Peroneal longus/brevis) 08/20 08/20 S2: Great toe flexion (FHL), Knee flexion 08/20 08/20 Last Recorded Vitals Visit Vitals BP 98/58 (BP Location: Right arm, Patient Position: Sitting, BP Cuff Size: Adult) Pulse 63 Ht 1.753 m (5' 9 ) Wt 70.3 kg (155 lb) SpO2 98% BMI 22.89 kg/m?? Smoking Status Never BSA 1.85 m?? Labs No lab exists for component: ALB Imaging Cervical AP/Lat x-ray films with flexion-extension views were obtained today personally reviewed/interpreted. Anterior superior endplate fracture noted at C7 is not visualized on current imaging. We do not appreciate any dynamic instability in flexion or extension. There are severe degenerative changes greatest at C5-6. Assessment and Plan Rm Larios is a 89 y.o. male here today for continued neurosurgical surveillance is now 6 weeks status post a fall that resulted in C7 anterior superior endplate fracture. The patient initially treated conservatively with cervical collar. The patient is neck pain in his neurologically intact without clinical radiculopathy or myelopathy. The patient has no tenderness to palpation over the cervical spine. Cervical x-ray films obtained today show stable alignment dynamic instability. We feel at this time, it is now safe with the patient to wean out of the cervical collar. No further neurosurgical follow-up is necessary at this time unless symptoms worsen for any reason. The patient is agreeable plan. Has no concerns or questions. They had the opportunity to ask questions, all of which were answered to their satisfaction. No further neurosurgical follow-up is indicated. We will release the patient back to your care. They are welcome to follow up with neurosurgery on an as-needed basis. Parts of this note were dictated using [employer] Direct voice recognition software. As a result, errors may occur. When identified, these diamond sizer errors are corrected, but while every attempt is made to prevent/correct these, errors may still exist. Assessment/Plan Active Problems: There are no active Hospital Problems. Paradise Bishop PA-C [facility] [place] Department of Neurosurgery [1] History reviewed. No pertinent family history. [2] Current Outpatient Medications Medication Sig Dispense Refill acetaminophen (Tylenol) 325 MG tablet Take 2 tablets by mouth 4 times a day. Under [place] law, monthly prescriptions (30 days) can be refilled at 25 days and three-month prescriptions (90 days) at 80 days. Please contact the insurance company with questions if refills are denied. 100 tablet 0 ASPIRIN 81 MG chewable tablet Chew 1 tablet daily. atorvastatin (Lipitor) 40 MG tablet Take 1 tablet by mouth daily. dapagliflozin (Farxiga) 10 MG tablet TAKE 1 TABLET BY MOUTH ONCE A DAY 90 tablet 3 metoprolol succinate XL (Toprol-XL) 25 MG 24 hr tablet Take 1 tablet by mouth daily. Do not crush or chew. polyethylene glycol (Miralax) 17 g packet Take 17 g by mouth 2 times a day. 30 packet 0 senna-docusate (Anna-Colace) 8.6-50 MG tablet Take 2 tablets by mouth 2 times a day. 60 tablet 0 spironolactone (Aldactone) 25 MG tablet Take 1 tablet (25 mg) by mouth 1 (one) time each day if needed (lower extremity edema). 60 tablet 3 tamsulosin (Flomax) 0.4 MG 24 hr capsule Take 1 capsule by mouth 1 time each day with dinner. torsemide (Demadex) 20 MG tablet TAKE 1 TABLET BY MOUTH ONCE A DAY 30 tablet 6 No current facility-administered medications for this visit. documented in this encounter Plan of Treatment Upcoming Encounters Date Type Department Care Team (Late st Contact Info) Description 07/10/2025 1:45 PM EDT Office Visit [facility] [place] [facility] [address] [facility] [place] [address] Rm Hernandez MD [address] [place] [address] documented as of this encounter Results * XR Cervical Spine [...] cervical vertebra, unspecified fracture morphology, initial encounter (CMS/HCC)- Primary Closed nondisplaced fracture of seventh cervical vertebra, unspecified fracture morphology, initial encounter ([facility]) documented in this encounter Additional Health Concerns Assessment Noted Time PHQ-9 Depression Total Score: 0 07/05/19 25 11:38 AM EDT A fall risk assessment has been complete d for the patient 10/17/2024 11:04 AM EDT A Body Mass Index follow-up plan has been documented for the patient 10/17/2024 12:02 PM EDT documented as of this encounter Care Teams Vba Programmer Relationship Specialty Start Date End Date Willian Green MD [address] [place] [address] PCP - General 08/20/22 Paradise Bishop PA [address] [facility] [address] [place] [address] Physician Air Quality Consultant Neurosurgery 10/17/24 documented as of this encounter
[2024-12-09] VITALS (8 sets, daily range): BP systolic 115–132; BP diastolic 69–76; PULSE 64–70; RESP 14–22; TEMP 36.7–37.1; O2SAT 95–99; BMI 22.9
--- NOTE | 2024-12-09 14:56 | ECG_ITS ---
APPROVED REPORT Exam: Resting ECG HR:64 bpm ECG Measurements Heart Rate 64 AXES ND 165 P 75 QRSd 102 QRS -53 QT 424 T 23 QTc 434 Conclusion SINUS RHYTHM WITH MARKED SINUS ARRHYTHMIA INCOMPLETE RIGHT BUNDLE BRANCH BLOCK [90+ ms QRS DURATION, TERMINAL R IN V1/V2, 40+ ms S IN I/aVL/V4/V5/V6] LEFT ANTERIOR FASCICULAR BLOCK [QRS AXIS <= -45, QR IN I, RS IN II] SEPTAL MYOCARDIAL INFARCTION , OF INDETERMINATE AGE [40+ ms Q WAVE IN V1/V2] ABNORMAL ECG UNCONFIRMED REPORT Electronically signed by : SUSAN VASQUEZ, 12/10/2024 23:19:15
--- NOTE | 2024-12-09 15:13 | XR_ITS ---
PROCEDURE INFORMATION: Exam: XR Chest Exam date and time: 12/09/2024 3:23 PM Age: 89 years old Clinical indication: Other: Fluid overload TECHNIQUE: Imaging protocol: Radiologic exam of the chest. Views: 1 view. COMPARISON: CR XR CHEST PORTABLE 04/24/2024 12:56 PM FINDINGS: Lungs: Mild opacity in the right upper lobe may represent atelectasis or pneumonia. Pleural spaces: Unremarkable. No pleural effusion. No pneumothorax. Heart/Mediastinum: Stable cardiac silhouette Bones/joints: Severe narrowing and the subacromial space bilaterally consistent with severe impingement syndrome Other findings: Stable metallic densities overlie the right upper lobe IMPRESSION: Mild opacity in the right upper lobe may represent atelectasis or pneumonia.
--- OUTSIDE RECORDS SUMMARY | 2024-12-09 15:16 | XMS_ITS | Encounter Summary ---
Author Organization [facility] Address [address] [place] [address] Care Team Providers Care Gripper Attacher Name Role Phone Willian Green MD Primary Care Provider [phone] Reason for Visit * Reason Comments Med Refill Encounter Details Date Type Department Care Team ([facility] st Contact Info) Description 10/16/2024 Refill [facility] [place] [address] [facility] [place] [address] Rm Hernandez MD [address] [place] [address] Social History Tobacco Use Types Packs/Day Years [...] any time in the past 12 m [facility], were you homeless or living in a [facility] (including now)? No 08/29/2024 CAGE ASSESSMENT Answer [...] drink first t princess in the morning (EYE-ELECTRICIAN DECK) to steady your nerves or to get [...] on file documented as of this encounter Plan of Treatment Upcoming Encounters Date Type Department Care Team (Late st Contact Info) Description 07/10/2025 1:45 PM EDT Office Visit [facility] [place] [facility] [address] [place] [address] Rm Hernandez MD [address] [place] [address] documented as of this encounter Visit Diagnoses Not on filedocumented in this encounter Additional Health Concerns Assessment Noted Time PHQ-9 Depression Total Score: 0 07/05/19 11:38 AM EDT A fall risk assessment has been complete d for the patient 07/04/2024 11:37 AM EDT A Body Mass Index follow-up plan has been documented for the patient 09/05/2024 2:37 PM EDT documented as of this encounter Care Teams Gripper Attacher Relationship Specialty Start Date End Date Willian Green MD [address] [place] [address] PCP - General 08/20/22 documented as of this encounter
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
--- OUTSIDE RECORDS SUMMARY | 2024-12-09 15:16 | XMS_ITS | Encounter Summary ---
Author Organization [facility] Address [address] [place] [address] Care Team Providers Care Radiologic Technologist Chief Name Role Phone Willian Green MD Primary Care Provider [phone] Paradise Bishop Unavailable [phone] Encounter Details Date Type Department Care Team (Late st Contact Info) Description 10/18/2024 Telephone [facility] [address], [address] [place] [address] Paradise Bishop PA [address] [place] [address] Social History Tobacco Use Types Packs/Day Years [...] any time in the past 12 m [facility], were you homeless or living in [...] drink first t princess in the morning (EYE-BIOCHEMICAL DEVELOPMENT ENGINEER) to steady your nerves or to get [...] on file documented as of this encounter Miscellaneous Notes * Telephone Encounter - Paradise Bishop PA - 10/18/2024 1:31 PM EDT Office note from yesterday's visit and collar clearance letter faxed to june barrios. Confirmation received. * Telephone Encounter - Barbara Yancey - 10/18/2024 9:46 AM EDT Patient Phone Message Reason for Call: Ryan Jorgensen home calling to get clinical fax to her from yesterdays visit. She also needs to know if the neck brace use was discontinued according to the pt. Best contact number and optimal time of day to reach caller: Conchis # [phone] Note: Please do not reply to this message. Follow-up communication and further actions as a result of this message need to be communicated with the patient directly, if the patient is not active onMyChart. If the patient is active on MyChart, they will receive notification of the communication/outcome via [facility]. documented in this encounter Plan of Treatment Upcoming Encounters Date Type Department Care Team (Late st Contact Info) Description 07/10/2025 1:45 PM EDT Office Visit [facility] [place] [facility] [address] [facility] [place] [address] Rm Hernandez MD [address] [place] [address] documented as of this encounter Visit Diagnoses [...] documented as of this encounter Care Teams Radiologic Technologist Chief Relationship Specialty Start Date End Date Willian Green MD [address] [place] [address] PCP - General 08/20/22 Paradise Bishop PA [address] [facility] [address] [place] [address] Physician Fiberglass Luggage Molder Neurosurgery 10/17/24 documented as of this encounter
--- OUTSIDE RECORDS SUMMARY | 2024-12-09 15:16 | XMS_ITS | Encounter Summary ---
Author Organization [facility] Address [address] [place] [address] Care Team Providers Care Machine Stoppage Frequency Checker Name Role Phone Willian Green MD Primary Care Provider [phone] Paradise Bishop Unavailable [phone] Encounter Details Date Type Department Care Team (Latest Contact Info) Description 10/17/2024 Travel Social History Tobacco Use Types Packs/Day Years [...] any time in the past 12 m [facility], were you homeless or living in a prison (including now)? No 08/29/2024 CAGE ASSESSMENT Answer [...] drink first t princess in the morning (EYE-CHICKEN BONER) to steady your nerves or to get rid of a hangover? 0 08/28/2022 CAGE Questionnaire Score 0 023 Utilities Answer Date Recorded In the past 12 months has th e [employer], gas, oil, or water company threatened to [...] Description 07/10/2025 1:45 PM EDT Office Visit [facility] [place] [facility] [address] [facility] [place] [address] Rm Hernandez MD [address] [place] [address] documented as of this encounter Visit Diagnoses [...] documented as of this encounter Care Teams Machine Stoppage Frequency Checker Relationship Specialty Start Date End Date Willian Green MD [address] [place] [address] PCP - General 08/20/22 Paradise Bishop PA [address] [facility] [address] [place] [address] Physician Mining Speculator Neurosurgery 10/17/24 documented as of this encounter
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
[2024-12-09 15:24] LABS: Hematocrit 49.0 % (42.0-52.0); Hemoglobin 16.6 g/dL (14.1-18.0); Immature Granulocytes % 0.2 %; Mean Corpuscular HGB Conc 33.9 g/dL (31.8-35.4); Mean Corpuscular Hemoglobin 33.4 pg (27.0-31.2); Mean Corpuscular Volume 98.6 fl (80-94); Nucleated Red Blood Cells % 0 %; Platelet Count 118 K/mm3 (142-424); Red Blood Count 4.97 M/mm3 (4.60-6.20); Red Cell Distribution Width-SD 48.5 fL; White Blood Count 5.5 K/mm3 (4.8-10.8)
[2024-12-09 15:26] LABS: Alanine Aminotransferase 26 U/L (12-78); Albumin Level 4.3 g/dl (3.5-5.0); Albumin/Globulin Ratio 1.4 (1.1-1.8); Alkaline Phosphatase 93 U/L (38-126); Anion Gap 12.0 mEq/L (5-15); Aspartate Amino Transferase 50 U/L (17-59); Bilirubin,Total 2.5 mg/dl (0.2-1.3); Blood Urea Nitrogen 22 mg/dl (9-20); Calcium 9.1 mg/dl (8.4-10.2); Carbon Dioxide 32 mmol/L (22.0-30.0); Chloride 103 mmol/L (98-107); Creatinine Clearance Estimated 53 mL/min (50-200); Creatinine,Serum 0.90 mg/dl (0.66-1.25); Estimated Glomerular Filt Rate 80 ml/min (>60); GFR (African American) 97 ML/MIN (>60); Globulin 3.1 g/dL (1.3-3.2); Glucose 90 mg/dl (74-100); Lipase 39 U/L (23-300); Magnesium 2.1 mg/dl (1.6-2.3); Potassium 4.0 mmoL/L (3.5-5.1); Sodium 143 mmol/L (136-145); Total Protein,Serum 7.4 g/dl (6.3-8.2)
[2024-12-09 15:31] LABS: Coronavirus 19, PCR Not Detected (NotDetected); Influenza A, PCR Not Detected (NotDetected); Influenza B, PCR Not Detected (NotDetected)
[2024-12-09 15:43] LABS: Microscopic, Urine URINE MICROSCOPIC (MICROSCOPIC)
[2024-12-09 15:45] LABS: Bilirubin,Urine Negative (Negative); Color,Urine YELLOW (Yellow); Glucose,Urine (UA) 1+ (Negative); Ketones,Urine Negative (Negative); Leukocyte Esterase,Urine Negative (Negative); PH,Urine 5.5 (5.0-8.5); Protein,Urine Negative (Negative); Specific Gravity, Urine 1.010 (1.005-1.030); Urobilinogen,Urine 0.2 EU/dl (0.2)
[2024-12-09 15:51] LABS: WBC,Urine Occasional #/hpf (0-3)
--- NOTE | 2024-12-09 15:53 | CT_ITS ---
PROCEDURE INFORMATION: Exam: CT Head Without Contrast Exam date and time: 12/09/2024 4:29 PM Age: 89 years old Clinical indication: Altered mental status/memory loss TECHNIQUE: Imaging protocol: Computed tomography of the head without contrast. Radiation optimization: All CT scans at this facility use at least one of these dose optimization techniques: automated exposure control; mA and/or kV adjustment per patient size (includes targeted exams where dose is matched to clinical indication); or iterative reconstruction. COMPARISON: No relevant prior studies available. FINDINGS: Brain: No acute intracranial hemorrhage.. There is moderate diffuse heterogeneity of the white matter attenuation, consistent with chronic white matter ischemic changes. Moderate cerebral atrophy. 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 Paranasal sinuses: Visualized sinuses are unremarkable. No fluid levels. Mastoid air cells: Visualized mastoid air cells are well aerated. Bones: Degenerative changes in the left temporomandibular joint. It is subluxed anteriorly No acute fracture. Soft tissues: Unremarkable. IMPRESSION: No acute intracranial hemorrhage.. Left Temporomandibular joint subluxation
--- OUTSIDE RECORDS SUMMARY | 2024-12-09 16:15 | XMS_ITS | CCD ---
Author Organization Unknown Care Team Providers Care Enrichment Specialist Name Role Phone Non Engaged, [facility] Primary Care Provider Unav ailable Unavailable Chronic Care Management Unavaila ble Summary Purpose [employer] Insurance Providers Payer name Policy type / Coverage type Covered alliance party ID Effective Begin Date Effective End Date [facility] [id number] Unknown Unknown Family History Family History data not found Medication Administered No Medication Administered data Reason For Visit No Reason For Visit data Medical Equipment No Medical Equipment data Advance Directives No Advance Directive data
[2024-12-09 16:34] LABS: NT Pro Brain Natriuretic Pep. 801 pg/mL (0-450)
[2024-12-09] MEDS: AMOXICILLIN/CLAVULANATE POTASSIUM 875/125MG TABLET 1 EACH PO (17:22)
[2024-12-09] MEDS: AZITHROMYCIN 250MG TABLET 500 MG PO (17:22)
== END 2024-12-09 17:36 | disposition home or self-care (01) ==
PROVIDERS: Nurse Practitioner; Emergency Provider Student in an Organized Health Care Education/Training Program; PCP Family Medicine
DX: J18.9 Pneumonia, unspecified organism (principal); R53.1 Weakness; R53.83 Other fatigue; R35.0 Frequency of micturition
CPT/HCPCS: 70450; 71045; 80053; 81001; 83690; 83735; 83880; 85025; 87636; 93005; 99284; 99285